=== PATIENT | female | born 1980 | race Caucasian/White ===

== ENCOUNTER 2019-12-31 10:47 | Outpatient (CLI) | payer MEDICARE, OTHER, SELFPAY ==
--- NOTE | 2019-12-31 11:00 | MR_ITS ---
WS: [id number] MRI THORACIC SPINE without contrast HISTORY: back pain COMPARISON: 07/22/2018 TECHNIQUE: Multiplanar sequences are performed in sagittal and axial planes. Prior anterior cervical fusion from C4 to C7. There is mild focal kyphosis centered at T10-11. Signal within the cord remains normal. Significant disc desiccation and mild narrowing at T10-11 and T11-12 . T1-2: Normal. T2-3: Normal. T3-4: Normal. T4-5: Normal. T5-6: Normal. T6-7: Facet and ligamentum flavum arthropathy. There is mild narrowing of the foramen. No significan t stenosis. T7-8: Facet joint arthropathy and ligamentum flavum hypertrophy. Mild bilateral foraminal stenosis. T8-9: Facet joint arthropathy and ligamentum flavum arthropathy with moderate narrowing of the loli en. T9-10: Bilateral facet joint arthropathy. Moderate bilateral foraminal stenosis. T10-11: Mild annular disc bulging and facet arthropathy. Mild to moderate bilateral foraminal stenos is. T11-12: Moderate RIGHT paracentral disc protrusion with deformity of the RIGHT lateral thecal sac. N o significant encroachment or contact on the cord. Mild bilateral foraminal stenosis. Paravertebral soft tissues are normal. Patient has a known LEFT adrenal adenoma which is not seen on this exam. MR/MR thoracic spin wo con* [id number] IMPRESSION: 1. Multilevel facet joint arthropathy and degenerative disc disease in the [facility] spine. Mild progression since 2018. 2. Facet joint arthropathy most significant from T6-7 through T10-11. 3. Moderate foraminal narrowing at T8-9 through T10-11. 4. Moderate RIGHT paracentral disc protrusion at T11-[address] contact. Similar to the prior study.
--- NOTE | 2019-12-31 13:00 | MR_ITS ---
WS: [id number] MRI LUMBAR SPINE NONCONTRAST HISTORY: back pain, radiating pain down RIGHT leg. COMPARISON: 06/13/2018 TECHNIQUE: Sagittal and axial multisequence imaging is submitted. Disc protrusion at T11-12 was described on the thoracic spine MRI obtained on the same day. Very slight increase in lumbar lordosis. No fracture or marrow edema. Disc desiccation at L5-S1 is mild without loss of height. Conus terminates normally at L1-2 disc level. L1-L2: Normal. L2-L3: Mild annular disc bulging and facet arthropathy. No stenosis. L3-L4: Mild annular disc bulging with moderate facet and ligamentum flavum arthropathy. No focal disc protrusion. Very mild central and subarticular recess stenosis. L4-L5: Mild annular disc bulging with a very shallow central protrusion. Ligamentum flavum hypertroph y and facet arthropathy. L5-S1: Mild annular disc bulging with a superimposed central to RIGHT paracentral and proximal forami nal protrusion. Disc protrusion is slightly increased since the prior study and now abuts the RIGHT L 5 nerve root. Effacement and displacement of the thecal sac. There is mild encroachment on the RIGHT L5 nerve root. Similar to the prior study. Paraspinal soft tissues are normal. MR/MR lumbar spine wo con* [id number] IMPRESSION: 1. Slight enlargement of the previously described L5-S1 right-sided disc protr usion. Protrusion now abuts the L5 nerve root. 2. Mild central and subarticular recess stenosis at L3-4, similar to the prior study.
== END 2019-12-31 10:48 | disposition home or self-care (01) ==
LOC: RADSHAW 10:54
PROVIDERS: Family Provider Family Medicine; PCP Family Medicine; Visit Provider Nurse Practitioner Family
DX: M54.16 Radiculopathy, lumbar region (principal); G89.29 Other chronic pain; M54.6 Pain in thoracic spine; M48.061 Spinal stenosis, lumbar region without neurogenic claudication; M51.24 Other intervertebral disc displacement, thoracic region
CPT/HCPCS: 72146; 72148

== ENCOUNTER → 2020-02-19 10:37 | Outpatient (BNVA) | payer MEDICARE, BC, SELFPAY | PROVIDERS: Family Provider Family Medicine; PCP Family Medicine; Visit Provider Nurse Practitioner Family | DX: E11.9 Type 2 diabetes mellitus without complications (principal); M51.17 Intervertebral disc disorders with radiculopathy, lumbosacral region | CPT/HCPCS: 80053; 83036 ==

== ENCOUNTER 2020-03-10 12:49 | Outpatient (CLI) | payer MEDICARE, BC, SELFPAY ==
--- NOTE | 2020-03-10 13:00 | XR_ITS ---
WS: [id number] LATERAL LUMBAR SPINE: 3 view. Lateral radiographs are performed in upright neutral, flexion and extension to the patient's toleranc e. HISTORY: Low back pain COMPARISON: 06/13/2018 Slight increase in lumbar lordosis. Alignment is normal. With flexion and extension there is no insta bility. No fractures. XR/XR lumbar spine f/e only [id number] IMPRESSION: No lumbar spine instability.
== END 2020-03-10 12:50 | disposition home or self-care (01) ==
LOC: RADWPI 12:53
PROVIDERS: Family Provider Family Medicine; PCP Family Medicine; Visit Provider Licensed Practical Nurse
DX: M54.5 Low back pain (principal)
CPT/HCPCS: 72120

== ENCOUNTER 2020-03-16 06:00 | Outpatient (RCR) | payer BC, MEDICARE, SELFPAY | END 2020-04-04 23:59 | disposition home or self-care (01) | LOC: GPT 06:00 | PROVIDERS: PCP Family Medicine; Referring Provider Licensed Practical Nurse; Visit Provider Licensed Practical Nurse | DX: M51.17 Intervertebral disc disorders with radiculopathy, lumbosacral region (principal) | CPT/HCPCS: 97032; 97110; 97112; 97161; 97530 ==

== ENCOUNTER 2020-04-05 06:00 | Outpatient (RCR) | payer MEDICARE, BC, SELFPAY | END 2020-05-04 23:59 | disposition home or self-care (01) | LOC: GPT 06:00 | PROVIDERS: PCP Family Medicine; Visit Provider Licensed Practical Nurse | DX: M51.17 Intervertebral disc disorders with radiculopathy, lumbosacral region (principal) | CPT/HCPCS: 97110; 97112; 97140; 97530 ==

== ENCOUNTER 2020-05-05 06:00 | Outpatient (RCR) | payer BC, MEDICARE, SELFPAY | END 2020-06-04 23:59 | disposition home or self-care (01) | LOC: GPT 06:00 | PROVIDERS: PCP Family Medicine; Visit Provider Licensed Practical Nurse | DX: M51.17 Intervertebral disc disorders with radiculopathy, lumbosacral region (principal) | CPT/HCPCS: 97032; 97110; 97112; 97140; 97530 ==

== ENCOUNTER → 2020-06-02 14:00 | Outpatient (BNVA) | payer MEDICARE, BC, SELFPAY | PROVIDERS: PCP Family Medicine; Visit Provider Nurse Practitioner Family | DX: E55.9 Vitamin D deficiency, unspecified (principal); E11.9 Type 2 diabetes mellitus without complications | CPT/HCPCS: 82306; 83036 ==

== ENCOUNTER → 2020-08-23 14:26 | Outpatient (BNVA) | payer MEDICARE, SELFPAY | PROVIDERS: PCP Nurse Practitioner Family; Visit Provider Nurse Practitioner Family | DX: Z11.59 Encounter for screening for other viral diseases (principal) | CPT/HCPCS: 87635 ==

== ENCOUNTER 2020-11-17 06:00 | Outpatient (RCR) | payer MEDICARE, SELFPAY | END 2020-12-05 23:59 | disposition home or self-care (01) | LOC: GPT 06:00 | PROVIDERS: PCP Nurse Practitioner Family; Referring Provider Neurological Surgery; Visit Provider Neurological Surgery | DX: G95.9 Disease of spinal cord, unspecified (principal); M53.3 Sacrococcygeal disorders, not elsewhere classified; G89.29 Other chronic pain | CPT/HCPCS: 97110; 97161 ==

== ENCOUNTER 2020-12-06 06:00 | Outpatient (RCR) | payer MEDICARE, SELFPAY | END 2021-01-02 23:59 | disposition home or self-care (01) | LOC: GPT 06:00 | PROVIDERS: PCP Nurse Practitioner Family; Referring Provider Neurological Surgery; Visit Provider Neurological Surgery | DX: G95.9 Disease of spinal cord, unspecified (principal); M53.3 Sacrococcygeal disorders, not elsewhere classified; G89.29 Other chronic pain | CPT/HCPCS: 97110; 97140; 97164; 97530 ==

== ENCOUNTER 2021-01-03 06:00 | Outpatient (RCR) | payer MEDICARE, SELFPAY | END 2021-02-02 23:59 | disposition home or self-care (01) | LOC: GPT 06:00 | PROVIDERS: PCP Nurse Practitioner Family; Referring Provider Neurological Surgery; Visit Provider Neurological Surgery | DX: G95.9 Disease of spinal cord, unspecified (principal); M53.3 Sacrococcygeal disorders, not elsewhere classified; G89.29 Other chronic pain | CPT/HCPCS: 97110; 97140; 97530 ==

== ENCOUNTER 2021-02-03 06:00 | Outpatient (RCR) | payer MEDICARE, SELFPAY | END 2021-03-04 23:59 | disposition home or self-care (01) | LOC: GPT 06:00 | PROVIDERS: PCP Nurse Practitioner Family; Referring Provider Neurological Surgery; Visit Provider Neurological Surgery | DX: M47.12 Other spondylosis with myelopathy, cervical region (principal); M53.3 Sacrococcygeal disorders, not elsewhere classified; G89.29 Other chronic pain | CPT/HCPCS: 97110; 97140; 97164; 97530 ==

== ENCOUNTER → 2022-09-08 11:43 | Outpatient (BNVA) | payer MEDICARE, SELFPAY | PROVIDERS: PCP Nurse Practitioner Family; Visit Provider Nurse Practitioner Family | DX: Z12.4 Encounter for screening for malignant neoplasm of cervix (principal); E11.65 Type 2 diabetes mellitus with hyperglycemia; E55.9 Vitamin D deficiency, unspecified | CPT/HCPCS: 80053; 80061; 82306; 83036; 84443; 85025; 88175 ==

== ENCOUNTER 2022-10-04 15:11 | Outpatient (CLI) | payer MEDICARE, SELFPAY ==
--- NOTE | 2022-10-04 15:21 | MM_ITS ---
WS: [id number] BILATERAL 3D TOMOSYNTHESIS DIGITAL SCREENING MAMMOGRAPHY WITH CAD CLINICAL INFORMATION: Z12.31 - Encounter for screening mammogram for malignant ... HISTORY: Screening mammogram. No current complaints. COMPARISON: None. TECHNIQUE: Bilateral CC and MLO views. FINDINGS: History of breast reduction Scattered fibroglandular densities bilaterally. No suspicious focal mass, asymmetry, calcifications, or architectural distortion. No evidence of malignancy. Incidental punctate and lucent centered calci fications. MM/[place] [id number] IMPRESSION: BI-RADS: 2-Benign FOLLOW UP: 1 Year Follow-up Recommend return to annual screening mammography.
== END 2022-10-04 15:12 | disposition home or self-care (01) ==
LOC: RAD 15:11
PROVIDERS: PCP Nurse Practitioner Family; Visit Provider Nurse Practitioner Family
DX: Z12.31 Encounter for screening mammogram for malignant neoplasm of breast (principal)
CPT/HCPCS: 77063; 77067

== ENCOUNTER → 2023-04-26 14:18 | Outpatient (BNVA) | payer MEDICARE, SELFPAY | PROVIDERS: PCP Nurse Practitioner Family; Visit Provider Nurse Practitioner Family | DX: B35.1 Tinea unguium (principal) | CPT/HCPCS: 80053 ==

== ENCOUNTER 2023-04-29 17:29 | Emergency (ER) | payer MEDICARE, SELFPAY ==
[2023-04-29 17:31] VITALS: BP 141/86; PULSE 91; RESP 18; TEMP 36.7; O2SAT 97; BMI 35.3
--- NOTE | 2023-04-29 18:17 | XRR_ITS ---
PROCEDURE INFORMATION: Exam: XR Right Ankle Exam date and time: 04/29/2023 6:33 PM Age: 42 years old Clinical indication: Injury or trauma; Fall TECHNIQUE: Imaging protocol: Radiologic exam of the right ankle. Views: 3 or more views. COMPARISON: No relevant prior studies available. FINDINGS: Bones/joints: There is an overriding oblique fracture distal right fibula metadiaphysis and comminuted fracture medial malleolus. No fracture of the posterior malleolus. No dislocation. Small osteophyte anterior tibia and bony remodeling distal tibia and fibula compatible with previous ankle injury. There is calcaneal enthesopathy. No definite osteochondral lesion of the talus. Soft tissues: There is abundant soft tissue edema. XR/XR ankle RT min 3V* [id number] IMPRESSION: There is an overriding oblique fracture distal right fibula metadiaphysis and comminuted nondisplaced fracture medial malleolus.
[2023-04-29 19:41] VITALS: BP 155/112; PULSE 91; RESP 16; O2SAT 96
--- NOTE | 2023-04-29 19:42 | ED_ITS ---
HPI - Fall General: Chief Complaint: Fall Stated Complaint: Right ankle pain, fall Time Seen by Provider: 04/29/23 18:20 Source: patient and family Mode of arrival: wheelchair Limitations: no limitations History of Present Illness: Patient presents to the emergency department today for evaluation treatment of right ankle injury. Patient states that around 3-4 o'clock this morning, she got up from bed to try and use the restroom. She states she believes she accidentally caught her foot on part of her bed when trying to get up which resulted in her falling. Patient states that when she realized she was on the floor she tried to get up but was unable to put any weight on the extremity. She states she has been unable to bear weight all day and comes in for evaluation. The area is extremely swollen and bruised. 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 Kristian Stone open release of the median nerve at the wrist on the left History of delivery History of knee surgery History of partial adrenalectomy Pseudarthrosis following spinal fusion 06/21/2017 Dr. Kristian Stone: C4-C5 and revision C5-C6, C6-C7 ACDFF. Dr. Patricia Mckeon C5-C6, C6-C7 ACDFF Family History Grandmother Cancer Social History Smoking and tobacco status: current every day smoker cigarettes Packs smoked per day: 0.5 Alcohol intake: never Substance/Drug Use: never Household members: spouse and children Marital status: Current occupational status: disabled Physical Exam Const: COMMON NORMALS: no acute distress, patient oriented x3 and alert HENMT: COMMON NORMALS: normocephalic, atraumatic and hearing grossly normal bilaterally HEAD & SCALP: normocephalic and atraumatic Eye: COMMON NORMALS: Equal, round and reactive pupils present, EOMs intact bilaterally and conjunctivae normal CONJUNCTIVA: Yes conjunctivae normal PUPIL: Yes Equal, round and reactive pupils present Neck/C-Spine: COMMON NORMALS: full ROM and no JVD Lymph: LYMPHATIC: no lymphadenopathy noted Resp: COMMON NORMALS: normal respiratory effort, No retractions and No use of accessory muscles Cardio: COMMON NORMALS: no JVD and regular rate RATE: regular rate Extremity: NARRATIVE EXTREMITY EXAM: Patient is nonweightbearing to the right lower extremity and patient has pain with any range of motion at the ankle. Patient does have mobility of the toes. Significant swelling and bruising to the joint appreciated. Bruising across the dorsal aspect of the midfoot. Neurovascular intact distally. Neuro: COMMON NORMALS: patient oriented x3 SENSORIUM/ORIENTATION: Yes alert Psych: COMMON NORMALS: mental status grossly normal, Normal thought process present, cooperative and normal affect THOUGHT PROCESS: Normal thought process present Skin: COMMON NORMALS: no rashes or lesions noted and turgor normal GENERAL SKIN EXAM: no rashes or lesions noted and turgor normal Course Vital Signs: Vital signs: Vital Signs Temperature 98.1 F 04/29/23 17:31 Pulse Rate 91 04/29/23 19:41 Respiratory Rate 14 04/29/23 19:49 Blood Pressure 155/112 04/29/23 19:41 Pulse Oximetry 96 04/29/23 19:41 Oxygen Delivery Me thod Room Air 04/29/23 19:41 MDM - Fall Medical Decision Making Patient presents today for right ankle injury. X-ray indicates a bimalleolar fracture with a oblique fracture to the distal right fibula and comminuted nondisplaced fracture to the medial malleolus. It does appear that the [place] is generally intact but may slightly be shifted more medially. Patient does have bruising across the midfoot however, on the oblique view of the x-ray, the metatarsals are visible without signs of fracture. I did discuss the case with Dr. Porter. He wants to see the patient in his clinic tomorrow afternoon and indicates he will have his front office call. Patient is to be put into a long posterior sugar-tong splint and to remain nonweightbearing using crutches. Patient states she has crutches at home and will use those. She was given a very short course of pain medication by Dr. Gastelum as she can most likely get a refill or extension by orthopedics tomorrow. She is to keep her foot up and elevated through the night. X-ray findings, orthopedic consult, and recommendation for follow-up were all discussed with the patient who verbalizes her understanding and agreement to treatment plan. Differential Diagnosis Unlikely fracture of wrist (Ankle fracture, ankle sprain, foot fracture, foot sprain, tibial spiral fracture) Lab Data Radiology Impressions Ankle X-Ray 04/29/23 18:17 IMPRESSION: There is an overriding oblique fracture distal right fibula metadiaphysis and comminuted nondisplaced fracture medial malleolus. Discharge Plan Discharge Patient Disposition: Home Clinical Impression: Bimalleolar ankle fracture Condition: Stable Prescriptions: No Action latanoprost [Xalatan] 0.005 % drops 1 drop ophthalmic (eye) BID oxycodone-acetaminophen [Percocet] 10-325 mg tablet 1 tab PO BID PRN methadone 10 mg tablet 15 mg PO DAILY fluconazole 200 mg tablet 200 mg PO Q72H Qty: 3 0RF Rx Instructions: repeat x 3 doses terbinafine HCl 250 mg tablet 250 mg PO DAILY 84 Days Qty: 84 0RF metformin 500 mg tablet 500 mg PO BID Qty: 90 1RF cholecalciferol (vitamin D3) 125 mcg (5,000 unit) capsule 125 mcg PO DAILY Qty: 90 0RF lisinopril 10 mg tablet 10 mg PO DAILY Qty: 30 0RF baclofen 20 mg tablet See Rx Instructions .ROUTE .COMPLEX Qty: 120 3RF Dose Instruction: TAKE ONE TABLET BY MOUTH 4 TIMES DAILY NEEDED FOR MUSCLE SPASMS Rx Instructions: TAKE ONE TABLET BY MOUTH 4 TIMES DAILY NEEDED FOR MUSCLE SPASMS venlafaxine 75 mg tablet See Rx Instructions .ROUTE .COMPLEX Qty: 180 1RF Dose Instruction: TAKE ONE TABLET BY MOUTH TWICE A DAY Rx Instructions: TAKE ONE TABLET BY MOUTH TWICE A DAY Discharge Orders: Discharge ED (Routine); Ordered 04/29/23 Ordered By: Radha Mejia Referrals: Tennille Sipmson NP [Primary Care Provider] - Discharge Diet: Usual diet Discharge Activity: Limit activity as instructed Patient Instructions: Ankle Fracture (ED) Activity Restrictions/Additional Instructions: X-ray today confirms what we call a bimalleolar fracture. This is a fracture to both bones of the lower extremity that help create the ankle joint. I did speak with Dr. Porter with orthopedics regarding this finding and he would like to follow-up with you tomorrow. I have sent a referral to our case management worker letting her know of your need for an appointment tomorrow but, he also indicated he would let his office staff know and you should be getting contacted in the morning. The emergency room physician here danika has provided you a prescription for some pain medication to have on hand but, would likely assume you will also be receiving medication from the orthopedic office. Do not bear any weight on the extremity. Is much as possible keep it up and elevated. Keep your splint clean and dry. Coding Level of Care Code ED Fabricator Artificial Breast for Charisse Poole
[2023-04-29 19:49] VITALS: RESP 14
[2023-04-29] MEDS: fentaNYL 50 mcg/mL INJ 2mL 25 MCG IVP (19:49)
[2023-04-29 20:26] VITALS: RESP 14; O2SAT 97
[2023-04-29] MEDS: oxyCODONE-APAP 5-325 mg Tablet 1 TAB PO (20:26)
[2023-04-29 20:28] VITALS: PULSE 102; RESP 14; O2SAT 97
--- NOTE | 2023-04-30 09:44 | PC.SOCIAL ---
Addendum entered by Vida Perkins 05/17/23 14:21: Patient had a follow up appointment scheduled with ortho - patient did attend appointment. Original Note: Ortho F/u Referral sent to ortho at this time. Clinic to contact patient with appt date/time.
== END 2023-04-29 20:31 | disposition home or self-care (01) ==
PROVIDERS: Emergency Provider Physician Assistant; PCP Nurse Practitioner Family
DX: S82.844A Nondisplaced bimalleolar fracture of right lower leg, initial encounter for closed fracture (principal); Z79.891 Long term (current) use of opiate analgesic; Z79.84 Long term (current) use of oral hypoglycemic drugs; I10 Essential (primary) hypertension; E11.9 Type 2 diabetes mellitus without complications; F17.210 Nicotine dependence, cigarettes, uncomplicated; W19.XXXA Unspecified fall, initial encounter
CPT/HCPCS: 29515; 73610; 96374; 99284; J3010

== ENCOUNTER → 2023-04-30 15:49 | Outpatient (BNVA) | payer MEDICARE, SELFPAY | PROVIDERS: PCP Nurse Practitioner Family; Visit Provider Podiatrist Foot & Ankle Surgery | DX: S82.851A Displaced trimalleolar fracture of right lower leg, initial encounter for closed fracture (principal); W19.XXXA Unspecified fall, initial encounter; Y92.009 Unspecified place in unspecified non-institutional (private) residence as the place of occurrence of the external cause | CPT/HCPCS: 99204 ==

== ENCOUNTER 2023-05-04 08:26 | Day surgery (SDC) | payer MEDICARE, SELFPAY ==
[2023-05-03 13:16] VITALS: BMI 35.3
[2023-05-04] VITALS (12 sets, daily range): BP systolic 112–152; BP diastolic 69–98; PULSE 70–107; RESP 14–20; TEMP 36.1–36.6; O2SAT 94–97
--- NOTE | 2023-05-04 | XR_ITS ---
WS: [id number] Exam: XR ankle RT 2V [id number] Date/Time of Exam: 05/04/2023 12:00 AM Reason For Exam: ORIF ankle Comparison 04/29/2023. There is plate and screw fixation involving a fracture of the lower fibula in satisfactory alignment for healing. 2 screws also stabilize a fracture of the medial malleolus. The ankle mortise appears to be intact. XR/XR ankle RT 2V [id number] IMPRESSION: 1. Internal fixation of bimalleolar fracture as noted above.
--- NOTE | 2023-05-04 06:29 | W.PM.OPSUD ---
Surgery/Procedure H&P Update DATE OF PROCEDURE: May 04, 2023 DATE H&P PERFORMED: 04/30/23 CHANGES TO PREVIOUS DOCUMENTATION: None PLANNED PROCEDURE: Operation Date: 05/04/23 10:05 Proposed Procedures p :Open reduction internal fixation right trimalleolar fracture 35844,S82.851A(Right) - Eren Porter DPM
[2023-05-04] MEDS: sodium chloride 0.9% 1,000 ML 30 ML IV (09:01)
[2023-05-04 09:05] LABS: Glucose Point of Care 302 mg/dL (70-110)
[2023-05-04] MEDS: insulin regular-human 100 units/1 mL 10 UNIT IVP (09:35)
--- NOTE | 2023-05-04 09:39 | ANES.PREANE2 ---
Pre-Anesthetic Assessment Height/Weight: Height 1.78 m Weight 111.584 kg Temp Pulse Resp BP Pulse Ox O2 Del Method 97 F L 98 18 152/98 96 Room Air 05/04/23 08:48 05/04/23 08:48 05/04/23 08:48 05/04/23 08:48 05/04/23 08:48 05/04/23 08:50 Preop Diagnosis: Right trimalleolar fracture Operation Date: 05/04/23 10:05 Proposed Procedures p :Open reduction internal fixation right trimalleolar fracture 77801,S82.851A(Right) - Eren Porter DPM Familial anesthetic complications: none Was Beta Lupillo taken within 24 hours: N/A Was Clonidine taken within 24 hours: N/A Last intake: Intake Last Liquid Date 05/04/23 Last Liquid Time 06:00 Last Solid Date 05/03/23 Last Solid Time 21:30 Social Tobacco and No alcohol Exam alert, oriented x 3, clear to auscultation bilaterally and regular rate & rhythm Airway Mallampati: Class III Dentition: full Comments: Comments: neck fusion CV/HEM Hypertension Metabolic Diabetes Mellitus Anesthetic Plan ASA status: 3 Anesthesia: General and Regional (specify below) Medications/Allergies Home Medications Medication Instructions Recorded Confirmed Last Taken Type latanoprost 0.005 % eye drops 1 drop ophthalmic (eye) BID 12/24/19 05/03/23 05/03/23 History (Xalatan) methadone 10 mg tablet 15 mg PO DAILY 03/30/23 05/03/23 05/04/23 History fluconazole 200 mg tablet 200 mg PO Q72H #3 tabs 04/26/23 05/03/23 Unknown Rx metformin 500 mg tablet 500 mg PO BID #90 tabs 04/26/23 05/03/23 05/03/23 Rx terbinafine HCl 250 mg tablet 250 mg PO DAILY 12 weeks #84 tabs 04/26/23 05/03/23 05/03/23 Rx baclofen 20 mg tablet 20 mg PO QID PRN spasms 05/03/23 05/03/23 Unknown History venlafaxine 75 mg tablet 75 mg PO BID 05/03/23 05/03/23 05/03/23 History oxycodone-acetaminophen 10 mg-325 1 tab PO Q6H PRN pain 7 days #28 05/04/23 Unknown Rx mg tablet (Percocet) tabs Allergies Allergy/AdvReac Type Severity Reaction Status Date / Time gabapentin Allergy Mild BLE Verified 05/04/23 08:57 swelling pregabalin [From Lyrica] Allergy Mild BLE Verified 05/04/23 08:57 swelling Current Medications Generic Name Dose Route Start Last Admin Trade Name Angelq PRN Reason Stop Dose Admin Sodium Chloride 1,000 mls @ 30 mls/hr 05/04/23 08:45 05/04/23 09:01 Sodium Chloride 0.9% IV 05/05/23 08:44 30 mls/hr .Q24H KIKA Administration PFSH Anesthesia Medical History Depression Enrolled in chronic care management Fibromyalgia 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 Kristian Stone open release of the median nerve at the wrist on the left History of delivery History of knee surgery History of partial adrenalectomy Pseudarthrosis following spinal fusion 06/21/2017 Dr. Kristian Stone: C4-C5 and revision C5-C6, C6-C7 ACDFF. Dr. Patricia Mckeon C5-C6, C6-C7 ACDFF Family History Grandmother Cancer Social History Smoking and tobacco status: current every day smoker cigarettes Packs smoked per day: 0.5 Alcohol intake: never Substance/Drug Use: never Household members: spouse and children Marital status: Current occupational status: disabled Female Reproductive History Date of last menstrual period: 11/04/22 Data Anesthesia Cardiac Studies: No Data to Display
[2023-05-04] MEDS: ceFAZolin 2,000 MG in sodium chloride 0.9% (plus) 50 ML 100 MG IV (09:42)
[2023-05-04 09:44] LABS: OR HCG Qualitative Urine Negative (Negative)
--- NOTE | 2023-05-04 10:02 | ANES.PROC ---
Anesthesia Procedures Procedure/Date: 05/04/23 Nerve Block ^: Nerve Block 1: Main Anesthesia: general anesthesia Time Out Performed: Yes Consent: requested by attending/covering physician, from patient, from other, risks and benefits reviewed and patient agrees to proceed Nerve block location: popliteal (R) Anesthesia monitors applied: pulse oximetry, EKG, BP cuff and oxygen Nerve block position: supine Anesthetic Used: ropivicaine 0.5% (30 ml) and with decadron (4 mg) Ultrasound used to: recognize landmarks Nerve Stimulator Used?: No Interscalene/Femoral BLK: 4 stimuplex 21 g needle used for position and inplane approach, visualize local anesthetic spread and no vascular puncture identified Injection: neg aspiration of heme Patient Tolerated Procedure: well and no complications Complications: none
[2023-05-04] MEDS: ipratropium 0.5 mg/2.5 mL Neb INHALATION (11:05)
--- NOTE | 2023-05-04 11:28 | PM.OP ---
Operative Report Date of procedure: May 04, 2023 Pre-op diagnosis: Preop Diagnosis Right trimalleolar fracture Post-op diagnosis: Same Post-op findings: No syndesmotic disruption Procedure done: Reduction internal fixation right trimalleolar fracture. CPT code 52658 Implants: Wainwright anatomic fibular plate Wainwright 3.5 millimeter screws Wainwright 4.0 millimeter screws 2-0 Vicryl, 3-0 Vicryl, skin jamee 10 cc of Marcaine Surgeon: Eren Porter D.P.M. Employment Specialist: See intraoperative documentation Estimated blood loss: 5 41 IV fluids: 0 Urine output: 0 Complications: None Findings: No syndesmotic disruption. Brief History: New for 42-year-old female presents with right trimalleolar equivalent ankle fracture, she fell at her home getting out of bed to use the restroom in the early hours of 04/29/2023. X-rays taken in the emergency department 04/29/2023 significant for right trimalleolar equivalent.? Deven Grover displaced fracture laterally and proximally, comminuted fracture of the medial malleolus.? Discussed the nature of instability at patient's ankle as a result of her injuries and her best options being surgical fixation.? Recommend open reduction internal fixation right trimalleolar.? I reviewed at length with the patient, the risks, potential complications, benefits, alternatives, expectations, and typical outcomes associated with the surgery. The risks and potential complications were explained in detail, including but not limited to infection, wound dehiscence or soft tissue complications, bleeding and hematoma, chronic edema, neuritis or nerve damage producing numbness or chronic pain, CRPS, failure to relieve pain or worsening pain, thick / painful / unsightly scar, limited motion / stiffness, malposition, delayed union, malunion, or nonunion, fracture, reaction to implants, anesthetic complications, venous thromboembolism, and deformity recurrence.? I discussed the notion of no regrets with the patient as it pertains to complications and outcomes. The patient seemed to understand the nature of the proposed care and required convalescence. They asked appropriate questions, answered to their satisfaction. They are aware no guarantees can be made as to a satisfactory outcome and they understand there may be other possible unforeseen complications or outcomes not listed here that will be treated accordingly if they arise. There were no written or implied guarantees given to the patient. They gave informed consent to proceed. Procedure: The patient was placed under general anesthesia in the supine position. Timeout was performed. The right lower extremity was prepped and draped in a sterile manner. A pneumatic tourniquet was placed on the right high calf and inflated to 250 mmHg following Esmarch examination. An anterolateral approach was made to the right ankle joint. The lateral malleolus was exposed and a fracture was identified. The fracture fragments were reduced anatomically and confirmed under fluoroscopic guidance. Next, an anatomic fibular plate was selected and contoured to match the lateral malleolus. The plate was then positioned over the lateral malleolus, ensuring proper alignment of the fracture fragments. The plate was fixed to the lateral malleolus using 3.5 millimeter screws 5 screws proximal and 5 screws distal to the fracture.. The position of the plate and screws was confirmed radiographically. Screws did not violate the ankle mortise this was confirmed in all 3 standard views. Attention was then directed to the medial malleolus. A separate incision was made over the medial malleolus, and the fracture was exposed. The fracture fragments were reduced anatomically and confirmed under fluoroscopy. To stabilize the medial malleolus, 4.0 millimeter parallel screws were inserted maintaining proper alignment and stability of the fracture fragments. The position of the screws was confirmed radiographically. AP, oblique and lateral views confirmed that the 4 mm screws at the medial malleolus fracture did not violate the ankle joint. Cotton hook test was performed, syndesmosis was intact this was performed under live fluoroscopy. After confirming adequate reduction and fixation of both the lateral and medial malleoli, the wound was thoroughly irrigated with saline solution. The incisions were closed in layers, 2-0 Vicryl periosteum, 3-0 Vicryl subcutaneous tissue and jamee at skin. Sterile dressings consisting of Adaptic, sterile 4 x 4's, Kerlix and Brda wrap followed by application of a cam boot. The tourniquet was deflated, and the patient's right lower extremity was evaluated for adequate perfusion and neurological function. The patient tolerated the procedure well, and there were no intraoperative complications.
[2023-05-04] MEDS: oxyCODONE-APAP 10-325 mg Tablet 1 TAB PO (12:10)
--- NOTE | 2023-05-04 14:20 | ANE.PACU2 ---
Inpatient post-anesthesia follow up: Airway intact: Yes Vital signs: Temperature 98 F Pulse Rate 70 Respiratory Rate 16 Blood Pressure 115/75 Pulse Oximetry 95 Oxygen Delivery Me thod Room Air Oxygen Flow Rate 3.0 Fraction of Inspir ed Oxygen Hydration adequate: Yes Nausea and vomiting: No Pain level: 1 Mental status: Baseline
== END 2023-05-04 12:40 | disposition home or self-care (01) ==
PROVIDERS: Anesthesiology; PCP Nurse Practitioner Family; Visit Provider Podiatrist Foot & Ankle Surgery
PROC: (CPT 27822; principal; 2023-05-04 09:55)
DX: W18.30XA Fall on same level, unspecified, initial encounter (principal); S82.851A Displaced trimalleolar fracture of right lower leg, initial encounter for closed fracture; I10 Essential (primary) hypertension; E11.9 Type 2 diabetes mellitus without complications; Z79.891 Long term (current) use of opiate analgesic; Z79.84 Long term (current) use of oral hypoglycemic drugs; F17.210 Nicotine dependence, cigarettes, uncomplicated
CPT/HCPCS: 27822; 36416; 73600; 76000; 81025; 82962; 84703; A7003; C1713; J0690; J1100; J1815; J1885; J2250; J2405; J2704; J2795; J3010; J3490; J7030; J7644

== ENCOUNTER → 2023-05-17 14:05 | Outpatient (BNVA) | payer MEDICARE, SELFPAY | PROVIDERS: PCP Nurse Practitioner Family; Visit Provider Podiatrist Foot & Ankle Surgery | DX: S82.851A Displaced trimalleolar fracture of right lower leg, initial encounter for closed fracture (principal); X58.XXXA Exposure to other specified factors, initial encounter; Z98.890 Other specified postprocedural states; Z87.81 Personal history of (healed) traumatic fracture | CPT/HCPCS: 73610; 73620; 99213 ==

== ENCOUNTER → 2023-05-31 13:15 | Outpatient (BNVA) | payer MEDICARE, SELFPAY | PROVIDERS: PCP Nurse Practitioner Family; Visit Provider Podiatrist Foot & Ankle Surgery | DX: Z98.890 Other specified postprocedural states (principal); S82.851A Displaced trimalleolar fracture of right lower leg, initial encounter for closed fracture; X58.XXXA Exposure to other specified factors, initial encounter | CPT/HCPCS: 73610; 99024 ==

== ENCOUNTER → 2023-06-14 14:18 | Outpatient (BNVA) | payer MEDICARE, SELFPAY | PROVIDERS: PCP Nurse Practitioner Family; Visit Provider Podiatrist Foot & Ankle Surgery | DX: S82.851A Displaced trimalleolar fracture of right lower leg, initial encounter for closed fracture (principal); Z98.890 Other specified postprocedural states; Z87.81 Personal history of (healed) traumatic fracture; X58.XXXA Exposure to other specified factors, initial encounter | CPT/HCPCS: 73610; 99024 ==

== ENCOUNTER → 2023-06-28 13:05 | Outpatient (BNVA) | payer MEDICARE, SELFPAY | PROVIDERS: PCP Nurse Practitioner Family; Visit Provider Podiatrist Foot & Ankle Surgery | DX: Z98.890 Other specified postprocedural states; S82.851D Displaced trimalleolar fracture of right lower leg, subsequent encounter for closed fracture with routine healing; X58.XXXD Exposure to other specified factors, subsequent encounter | CPT/HCPCS: 73610; 99024 ==

== ENCOUNTER 2023-07-03 06:00 | Outpatient (RCR) | payer MEDICARE, SELFPAY | END 2023-07-05 23:59 | disposition home or self-care (01) | LOC: GPT 06:00 | PROVIDERS: Visit Provider Podiatrist Foot & Ankle Surgery | DX: Z47.89 Encounter for other orthopedic aftercare (principal) | CPT/HCPCS: 97161 ==

== ENCOUNTER 2023-07-06 06:00 | Outpatient (RCR) | payer MEDICARE, SELFPAY | END 2023-08-04 23:59 | disposition home or self-care (01) | LOC: GPT 06:00 | PROVIDERS: PCP Nurse Practitioner Family; Visit Provider Podiatrist Foot & Ankle Surgery | DX: Z47.89 Encounter for other orthopedic aftercare (principal) | CPT/HCPCS: 97110; 97112; 97140; 97597; 99213 ==

== ENCOUNTER → 2023-07-06 11:57 | Outpatient (BNVA) | payer MEDICARE, SELFPAY | PROVIDERS: PCP Nurse Practitioner Family; Visit Provider Nurse Practitioner Family | DX: E11.65 Type 2 diabetes mellitus with hyperglycemia (principal); E11.621 Type 2 diabetes mellitus with foot ulcer; L97.529 Non-pressure chronic ulcer of other part of left foot with unspecified severity | CPT/HCPCS: 83036; 87070; 87077; 87186 ==

== ENCOUNTER → 2023-07-13 08:54 | Outpatient (BNVA) | payer MEDICARE, SELFPAY | PROVIDERS: PCP Nurse Practitioner Family; Referring Provider Dermatology; Visit Provider Student in an Organized Health Care Education/Training Program | DX: E11.52 Type 2 diabetes mellitus with diabetic peripheral angiopathy with gangrene; L97.522 Non-pressure chronic ulcer of other part of left foot with fat layer exposed; E11.621 Type 2 diabetes mellitus with foot ulcer; L97.422 Non-pressure chronic ulcer of left heel and midfoot with fat layer exposed; I96 Gangrene, not elsewhere classified | CPT/HCPCS: 20600; 73110; 97597; 99203; J3301; J3490 ==

== ENCOUNTER → 2023-08-02 14:31 | Outpatient (BNVA) | payer MEDICARE, SELFPAY | PROVIDERS: PCP Nurse Practitioner Family; Visit Provider Podiatrist Foot & Ankle Surgery | DX: Z98.890 Other specified postprocedural states; S82.851D Displaced trimalleolar fracture of right lower leg, subsequent encounter for closed fracture with routine healing; X58.XXXD Exposure to other specified factors, subsequent encounter | CPT/HCPCS: 73610; 99024 ==

== ENCOUNTER 2023-08-05 06:00 | Outpatient (RCR) | payer MEDICARE, SELFPAY | END 2023-09-04 23:59 | disposition home or self-care (01) | LOC: GPT 06:00 | PROVIDERS: PCP Nurse Practitioner Family; Visit Provider Podiatrist Foot & Ankle Surgery | DX: S82.851D Displaced trimalleolar fracture of right lower leg, subsequent encounter for closed fracture with routine healing (principal); X58.XXXD Exposure to other specified factors, subsequent encounter; Z47.89 Encounter for other orthopedic aftercare | CPT/HCPCS: 97110; 97112; 97140 ==

== ENCOUNTER 2023-09-05 06:00 | Outpatient (RCR) | payer MEDICARE, SELFPAY | END 2023-10-04 23:59 | disposition home or self-care (01) | LOC: GPT 06:00 | PROVIDERS: PCP Nurse Practitioner Family; Visit Provider Podiatrist Foot & Ankle Surgery | DX: Z98.890 Other specified postprocedural states (principal) | CPT/HCPCS: 97110; 97112; 97140; 97164 ==

== ENCOUNTER → 2023-09-13 13:04 | Outpatient (BNVA) | payer MEDICARE, SELFPAY | PROVIDERS: PCP Nurse Practitioner Family; Visit Provider Podiatrist Foot & Ankle Surgery | DX: E11.65 Type 2 diabetes mellitus with hyperglycemia (principal); M21.41 Flat foot [pes planus] (acquired), right foot; M21.42 Flat foot [pes planus] (acquired), left foot; Z79.84 Long term (current) use of oral hypoglycemic drugs | CPT/HCPCS: 99213 ==

== ENCOUNTER 2023-10-05 06:00 | Outpatient (RCR) | payer MEDICARE, SELFPAY | END 2023-11-04 23:59 | disposition home or self-care (01) | LOC: GPT 06:00 | PROVIDERS: PCP Nurse Practitioner Family; Visit Provider Podiatrist Foot & Ankle Surgery | DX: Z98.890 Other specified postprocedural states (principal) | CPT/HCPCS: 97110; 97112; 97140; 97164 ==

== ENCOUNTER → 2023-10-11 17:22 | Outpatient (BNVA) | payer MEDICARE, SELFPAY | PROVIDERS: PCP Nurse Practitioner Family; Visit Provider Nurse Practitioner Family | DX: I10 Essential (primary) hypertension (principal); E11.65 Type 2 diabetes mellitus with hyperglycemia; E55.9 Vitamin D deficiency, unspecified | CPT/HCPCS: 80053; 80061; 82306; 83036; 84443 ==

== ENCOUNTER 2023-11-05 06:00 | Outpatient (RCR) | payer MEDICARE, SELFPAY | END 2023-12-05 23:59 | disposition home or self-care (01) | LOC: GPT 06:00 | PROVIDERS: PCP Nurse Practitioner Family; Visit Provider Podiatrist Foot & Ankle Surgery | DX: Z98.890 Other specified postprocedural states (principal) | CPT/HCPCS: 97110; 97112; 97140; 97164 ==

== ENCOUNTER 2023-12-03 17:21 | Outpatient (CLI) | payer MEDICARE, SELFPAY ==
--- NOTE | 2023-12-03 17:31 | XRR_ITS ---
PROCEDURE INFORMATION: Exam: XR Cervical Spine Exam date and time: 12/03/2023 5:34 PM Age: 43 years old Clinical indication: Neck pain; Prior surgery; Surgery date: 1-6 months; Surgery type: Laminectomy; Additional info: Postlaminectomy TECHNIQUE: Imaging protocol: Radiologic exam of the cervical spine. Views: 2 or 3 views. COMPARISON: CT cervical spin wo con* [id number] 08/27/2018 10:34 AM FINDINGS: Bones/joints: Multilevel discogenic degenerative changes. Status post ACDF of C4-7. Status post multilevel posterior laminectomy. Straightening of the normal cervical lordosis. No spondylolisthesis. Stability is maintained on flexion and extension views. Soft tissues: Superficial soft tissues are within normal limits. XR/XR cervical spine fl/ex [id number] IMPRESSION: Postprocedural changes as above. No spondylolisthesis. No evidence of instability on flexion or extension views.
== END 2023-12-03 17:22 | disposition home or self-care (01) ==
LOC: RAD 17:25
PROVIDERS: PCP Nurse Practitioner Family; Visit Provider Nurse Practitioner
DX: M96.1 Postlaminectomy syndrome, not elsewhere classified (principal); Z98.890 Other specified postprocedural states
CPT/HCPCS: 72040

== ENCOUNTER → 2023-12-25 07:53 | Outpatient (BNVA) | payer MEDICARE, SELFPAY | PROVIDERS: PCP Nurse Practitioner Family; Visit Provider Podiatrist Foot & Ankle Surgery | DX: L60.0 Ingrowing nail (principal); E11.65 Type 2 diabetes mellitus with hyperglycemia; M72.2 Plantar fascial fibromatosis; Z79.84 Long term (current) use of oral hypoglycemic drugs | CPT/HCPCS: 11730; 87070; 87075; 87077; 87186; 87205; 99213 ==

== ENCOUNTER 2024-01-05 20:41 | Emergency (ER) | payer MEDICARE, SELFPAY ==
[2024-01-05 21:00] VITALS: BP 158/93; PULSE 98; RESP 18; TEMP 36.8; O2SAT 94; BMI 35.2
--- NOTE | 2024-01-05 22:05 | ED_ITS ---
Documented by User: [email or web address] Siddiqui 01/07/24 17:15 HPI - Extremity Problem 2 General: Chief complaint: Extremity Problem,Nontraumatic Stated complaint: infection in ln toe, sent by doc Time Seen by Provider: 01/05/24 21:20 Source: patient Mode of arrival: ambulatory Limitations: no limitations History of Present Illness: Patient is a 43-year-old female with past medical history of diabetes who presents the emergency department complaining of left first toe pain and redness onset 2 weeks but worsening today. Patient states she had an ingrown toenail removed [address] Porter, and had the wound cultured. Per the patient, the culture grew out a very resistant strain of staphylococcal species, that is reportedly nonreactive to many antibiotics. She has been on doxycycline, but states that her pain and swelling has not improved over the past couple weeks. She has been sending pictures to Dr. Porter periodically, and today was told to come to the emergency department for potential admission for IV antibiotics and consult with infectious disease. Patient denies any fevers, chest pain, breathing difficulties, nausea vomiting, or any other symptoms. Associated symptoms: Deny chest pain, fever(s) or rash Review of Systems 2 General: Reports: 10 or more systems reviewed and unremarkable except in HPI and below Const: Denies: fever(s), chills or fatigue Eyes: Denies: change in vision ENMT: Denies: throat pain, ear or mastoid pain or nasal discharge Card: Denies: chest pain, palpitations, swelling of feet/ankles or lightheadedness Resp: Denies: dyspnea, productive cough or wheezing GI: Denies: abdominal pain, nausea, vomiting, diarrhea or constipation : Denies: flank pain, difficulty voiding, dysuria or urinary frequency Musc: Reports: extremity pain (Left first toe) and extremity swelling (Left first toe); Denies: neck pain or back pain Skin/Breast: Denies: rash Neuro: Denies: headache(s), numbness in extremities or weakness in extremities PFS ED 2 PFSH: Medical History History of ankle fracture 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 Kristian Stone: C4-C5 and revision C5-C6, C6-C7 ACDFF. Dr. Patricia Mckeon C5-C6, C6-C7 ACDFF History of knee surgery Carpal tunnel syndrome of left wrist 04/26/2017 Dr. Kristian Stone open release of the median nerve at the wrist on the left History of delivery History of partial adrenalectomy Family History Grandmother Cancer Social History Smoking and tobacco/nicotine status: current every day tobacco/nicotine user cigarettes Packs smoked per day: 0.5 Alcohol intake: never Substance/Drug Use: never Household members: spouse and children Marital status: Current occupational status: disabled Physical Exam 2 Const: COMMON NORMALS: no acute distress, patient oriented x3 and no limitations GENERAL APPEARANCE: cooperative, comfortable and well developed ORIENTATION/CONSCIOUSNESS: Yes awake, Yes oriented to person, Yes oriented to place and Yes oriented to time HENMT: COMMON NORMALS: normocephalic, atraumatic and hearing grossly normal bilaterally HEAD & SCALP: normocephalic and atraumatic Neck/C-Spine: COMMON NORMALS: full ROM, supple and no JVD Resp: COMMON NORMALS: normal respiratory effort, No retractions, No use of accessory muscles and clear to auscultation bilaterally AUSCULTATION: clear to auscultation bilaterally Cardio: COMMON NORMALS: no JVD, regular rate, regular rhythm, No clicks present (Cardio), No murmurs present (Cardio) and No rub (Cardio) RATE: r egular rate RHYTHM: regular rhythm Extremity: COMMON NORMALS: full ROM OTHER: The left great toe is erythematous and moderately edematous. The toenail is surgically absent, and is not actively bleeding or draining. The redness and swelling extend approximately to the first MTP. It is exquisitely tender to the touch. All other digits normal and distal pulses intact. No red streaking noted. Neuro: COMMON NORMALS: patient oriented x3, moves all extremities, no focal motor deficits and no sensory deficits noted SENSORIUM/ORIENTATION: Yes oriented to person, Yes oriented to place and Yes oriented to time Psych: COMMON NORMALS: mental status grossly normal and Normal thought process present THOUGHT PROCESS: Normal thought process present Skin: COMMON NORMALS: no rashes or lesions noted GENERAL SKIN EXAM: no rashes or lesions noted Course 2 Vital Signs: Vital signs: Vital Signs Temperature 98.3 F 01/05/24 21:00 Pulse Rate 98 01/05/24 21:00 Respiratory Rate 18 01/05/24 21:00 Blood Pressure 158/93 01/05/24 21:00 Pulse Oximetry 94 01/05/24 21:00 Oxygen Delivery Me thod Room Air 01/05/24 21:00 MDM - Extremity (Nontraumatic) Medical Decision Making This patient was seen and evaluated in the emergency department today for evaluation of her left great toe infection. Patient has been seeing Dr. Porter as 2 weeks ago he removed an ingrown toenail and cultured the wound, resulting in a rare strain or staphylococcal species. She was started on doxycycline, however the organism is resistant to a numerous amount of antibiotics. Initially, Dr. Porter had recommended she go to the ER for admission to the hospital for IV antibiotics. Upon consulting the hospitalist, they reported that the patient would be consult with infectious disease as her infection would warrant specific antibiotic treatment from specialist. Dr. Porter called again and informed of this, and he recommended that patient be transferred to a facility that could have infectious disease consult her. Labs ordered and image of the left toe was also obtained. Overall her laboratory results were unremarkable, and showed no acute signs of systemic infection. She had a minimally elevated CRP, normal ESR, and normal procalcitonin. I discussed plan for transfer with the patient, however it is mutually decided that she would benefit more from outpatient follow-up with Dr. Porter and wound care, with close evaluation of her toe and symptoms for any worsening infection. This includes any fevers, extension of redness and swelling past the first MTP, nausea vomiting, or other concerning symptoms. Infectious disease is on-call on Sunday, and patient will follow-up as discussed. Patient agrees with this plan. All other concerns are addressed at this time. Patient discharged home. Lab Data 01/05/24 23:07 01/05/24 23:07 Radiology Impressions Toe X-Ray 01/05/24 22:56 IMPRESSION: Lucencies and possible fragmentation of the tuft of the 1st distal phalanx raising concern for osteomyelitis. This would be better assessed with MRI if indicated. Laboratory Results WBC 7.54 10^3/uL (3.29-11.43) 01/05/24 23:07 RBC 4.34 10^6/uL (3.85-5.65) 01/05/24 23:07 Hgb 13.80 g/dL (11.27-16.99) 01/05/24 23:07 Hct 41.1 % (36-47) 01/05/24 23:07 MCV 94.7 fl (85-98) 01/05/24 23:07 MCH 31.8 pg (27-33) 01/05/24 23:07 MCHC 33.6 g/dL (30-55) 01/05/24 23:07 RDW 11.9 % (12.1-15.1) L 01/05/24 23:07 Plt Count 181 10^3/cmm (157-399) 01/05/24 23:07 MPV 10.3 fL (7.4-10.4) 01/05/24 23:07 Neut % (Auto) 51.3 % 01/05/24 23:07 Lymph % (Auto) 40.7 % 01/05/24 23:07 [place] % (Auto) 5.4 % 01/05/24 23:07 Eos % (Auto) 1.9 % 01/05/24 23:07 Baso % (Auto) 0.4 % 01/05/24 23:07 Neut # (Auto) 3.87 10^3/uL (1.8-7.7) 01/05/24 23:07 Lymph # (Auto) 3.1 10^3/uL (0.8-4.8) 01/05/24 23:07 [place] # (Auto) 0.4 10^3/uL (0.2-0.9) 01/05/24 23:07 Eos # (Auto) 0.1 10^3/uL (0.0-0.8) 01/05/24 23:07 Baso # (Auto) 0.0 10^3/uL (0.0-0.1) 01/05/24 23:07 Nucleated RBC % (auto) 0 % 01/05/24 23:07 Nucleated RBCs # 0.0 /100WBC 01/05/24 23:07 ESR 5 mm/hr (0-15) 01/05/24 23:07 Sodium 136 mmol/L (136-145) 01/05/24 23:07 Potassium 4.0 mmol/L (3.5-5.1) 01/05/24 23:07 Chloride 100 mmol/L (98-107) 01/05/24 23:07 Carbon Dioxide 26 mmol/L (22-29) 01/05/24 23:07 Anion Gap 14.0 (5-19) 01/05/24 23:07 BUN 10 mg/dL (6-20) 01/05/24 23:07 Creatinine 0.7 mg/dL (0.5-0.9) 01/05/24 23:07 GFR Calculation 90.5 mL/min (90-130) 01/05/24 23:07 Glucose 260 mg/dL (65-115) H 01/05/24 23:07 Calculated Osmolality 290 mOsm/kg (285-295) 01/05/24 23:07 Calcium 9.3 mg/dL (8.5-10.5) 01/05/24 23:07 Total Bilirubin 0.2 mg/dL (0.15-1.2) 01/05/24 23:07 AST 14 U/L (0-32) 01/05/24 23:07 ALT 12 U/L (0-33) 01/05/24 23:07 Alkaline Phosphatase 104 U/L (35-105) 01/05/24 23:07 C-Reactive Protein 6.2 mg/L (0.0-4.9) H 01/05/24 23:07 Total Protein 6.5 g/dL (6.6-8.7) L 01/05/24 23:07 Albumin 3.8 g/dL (3.5-5.2) 01/05/24 23:07 Globulin 2.7 g/dL (1.3-4.6) 01/05/24 23:07 Procalcitonin 0.06 ng/mL (0-0.5) 01/05/24 23:07 Urine Color Yellow (Yellow) 01/06/24 00:18 Urine Appearance Clear (CLEAR) 01/06/24 00:18 Urine pH 5 (5-7) 01/06/24 00:18 Ur Specific [place] 1.020 (1.005-1.030) 01/06/24 00:18 Urine Protein Neg (Negative) 01/06/24 00:18 Urine Glucose (UA) Norm (Normal) 01/06/24 00:18 Urine Ketones Negative (Negative) 01/06/24 00:18 Urine Blood Neg (Negative) 01/06/24 00:18 Urine Nitrate Negative (Negative) 01/06/24 00:18 Urine Bilirubin Neg (Negative) 01/06/24 00:18 Urine Urobilinogen Norm mg/dL (Negative) 01/06/24 00:18 Ur Leukocyte Esterase Negative (Negative) 01/06/24 00:18 XR interpretation done by ED provider, pending radiology final review Discharge Plan Discharge Patient Disposition: Home Clinical Impression: Infection of toe Condition: Stable Prescriptions: No Action latanoprost [Xalatan] 0.005 % drops 1 drop ophthalmic (eye) BID methadone 10 mg tablet 15 mg PO DAILY terbinafine HCl 250 mg tablet 250 mg PO DAILY 84 Days Qty: 84 0RF (DME) ASO to the right See Rx Instructions .Route .MEDSUPPLY Qty: 1 0RF Rx Instructions: As directed diclofenac sodium 1 % gel See Rx Instructions .ROUTE .COMPLEX Qty: 300 1RF Dose Instruction: APPLY 4 GRAMS TO AFFECTED AREA 4 TIMES DAILY Rx Instructions: APPLY 4 GRAMS TO AFFECTED AREA 4 TIMES DAILY metformin 1,000 mg tablet 1,000 mg PO BID Qty: 180 3RF doxycycline hyclate 100 mg capsule 100 mg PO BID 14 Days Qty: 28 0RF mupirocin 2 % ointment 1 applic topical TID Qty: 15 0RF Rx Instructions: apply to wound TID and as needed with dressing changes, cover with band-aid tirzepatide 5 mg/0.5 mL pen injector 5 mg SUBCUT .weekly Qty: 2 2RF lisinopril 40 mg tablet 40 mg PO DAILY Qty: 90 0RF dalbavancin 500 mg solution 1,500 mg IV ONCE 1 Days oxycodone-acetaminophen [Percocet] 7.5-325 mg tablet 1 tab PO Q6H PRN (Reason: pain) 7 Days Qty: 28 0RF venlafaxine 75 mg tablet 75 mg PO BID Qty: 180 0RF (DME) Diabetic shoes See Rx Instructions .ROUTE .MEDSUPPLY Qty: 1 0RF Rx Instructions: With one pair custom molded accommodative inserts made by the shoe damaris baclofen 20 mg tablet See Rx Instructions .ROUTE .COMPLEX Qty: 120 3RF Dose Instruction: TAKE ONE TABLET BY MOUTH 4 TIMES DAILY NEEDED FOR MUSCLE SPASMS Rx Instructions: TAKE ONE TABLET BY MOUTH 4 TIMES DAILY NEEDED FOR MUSCLE SPASMS cholecalciferol (vitamin D3) 125 mcg (5,000 unit) capsule 125 mcg PO DAILY Qty: 90 3RF Discharge Orders: Discharge ED (Routine); Ordered 01/06/24 Ordered By: Chris Hernandez Referrals: Tennille Simpson, [facility] [Primary Care Provider] - Discharge Diet: Usual diet Discharge Activity: Increase activity as tolerated Activity Restrictions/Additional Instructions: Please follow-up with Dr. Porter next week to discuss your ER visit and potential referral with infectious disease. Please return if you develop any fevers, nausea or vomiting, significant extension of your redness swelling or pain, or any other concerning symptoms you may have. 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 Kristian Stone: C4-C5 and revision C5-C6, C6-C7 ACDFF[address] Dr. Patricia Mckeon C5-C6, C6-C7 ACDFF History of knee surgery Carpal tunnel syndrome of left wrist 04/26/2017 Dr. Kristian Stone open release of the median nerve at the wrist on the left History of delivery History of partial adrenalectomy Family History Grandmother Cancer Social History Smoking and tobacco/nicotine status: current every day tobacco/nicotine user cigarettes Packs smoked per day: 0.5 Alcohol intake: never Substance/Drug Use: never Household members: spouse and children Marital status: Current occupational status: disabled Course 2 Vital Signs: Vital signs: Vital Signs Temperature 98.3 F 01/05/24 21:00 Pulse Rate 98 01/05/24 21:00 Respiratory Rate 18 01/05/24 21:00 Blood Pressure 158/93 01/05/24 21:00 Pulse Oximetry 94 01/05/24 21:00 Oxygen Delivery Me thod Room Air 01/05/24 21:00 MDM - Extremity (Nontraumatic) Medical Decision Making This patient was seen and evaluated in the emergency department today for evaluation of her left great toe infection. Patient has been seeing Dr. Porter as 2 weeks ago he removed an ingrown toenail and cultured the wound, resulting in a rare strain or staphylococcal species. She was started on doxycycline, however the organism is resistant to a numerous amount of antibiotics. Initially, Dr. Porter had recommended she go to the ER for admission to the hospital for IV antibiotics. Upon consulting the hospitalist, they reported that the patient would be consult with infectious disease as her infection would warrant specific antibiotic treatment from specialist. Dr. Porter called again and informed of this, and he recommended that patient be transferred to a facility that could have infectious disease consult her. Labs ordered and image of the left toe was also obtained. Overall her laboratory results were unremarkable, and showed no acute signs of systemic infection. She had a minimally elevated CRP, normal ESR, and normal procalcitonin. I discussed plan for transfer with the patient, however it is mutually decided that she would benefit more from outpatient follow-up with Dr. Porter and wound care, with close evaluation of her toe and symptoms for any worsening infection. This includes any fevers, extension of redness and swelling past the first MTP, nausea vomiting, or other concerning symptoms. Infectious disease is on-call on Sunday, and patient will follow-up as discussed. Patient agrees with this plan. All other concerns are addressed at this time. Patient discharged home. Chart reviewed and patient discussed with midlevel. Agree with assessment and plan. Lab Data 01/05/24 23:07 01/05/24 23:07 Radiology Impressions Toe X-Ray 01/05/24 22:56 IMPRESSION: Lucencies and possible fragmentation of the tuft of the 1st distal phalanx raising concern for osteomyelitis. This would be better assessed with MRI if indicated. Laboratory Results WBC 7.54 10^3/uL (3.29-11.43) 01/05/24 23:07 RBC 4.34 10^6/uL (3.85-5.65) 01/05/24 23:07 Hgb 13.80 g/dL (11.27-16.99) 01/05/24 23:07 Hct 41.1 % (36-47) 01/05/24 23:07 MCV 94.7 fl (85-98) 01/05/24 23:07 MCH 31.8 pg (27-33) 01/05/24 23:07 MCHC 33.6 g/dL (30-55) 01/05/24 23:07 RDW 11.9 % (12.1-15.1) L 01/05/24 23:07 Plt Count 181 10^3/cmm (157-399) 01/05/24 23:07 MPV 10.3 fL (7.4-10.4) 01/05/24 23:07 Neut % (Auto) 51.3 % 01/05/24 23:07 Lymph % (Auto) 40.7 % 01/05/24 23:07 [place] % (Auto) 5.4 % 01/05/24 23:07 Eos % (Auto) 1.9 % 01/05/24 23:07 Baso % (Auto) 0.4 % 01/05/24 23:07 Neut # (Auto) 3.87 10^3/uL (1.8-7.7) 01/05/24 23:07 Lymph # (Auto) 3.1 10^3/uL (0.8-4.8) 01/05/24 23:07 [place] # (Auto) 0.4 10^3/uL (0.2-0.9) 01/05/24 23:07 Eos # (Auto) 0.1 10^3/uL (0.0-0.8) 01/05/24 23:07 Baso # (Auto) 0.0 10^3/uL (0.0-0.1) 01/05/24 23:07 Nucleated RBC % (auto) 0 % 01/05/24 23:07 Nucleated RBCs # 0.0 /100WBC 01/05/24 23:07 ESR 5 mm/hr (0-15) 01/05/24 23:07 Sodium 136 mmol/L (136-145) 01/05/24 23:07 Potassium 4.0 mmol/L (3.5-5.1) 01/05/24 23:07 Chloride 100 mmol/L (98-107) 01/05/24 23:07 Carbon Dioxide 26 mmol/L (22-29) 01/05/24 23:07 Anion Gap 14.0 (5-19) 01/05/24 23:07 BUN 10 mg/dL (6-20) 01/05/24 23:07 Creatinine 0.7 mg/dL (0.5-0.9) 01/05/24 23:07 GFR Calculation 90.5 mL/min (90-130) 01/05/24 23:07 Glucose 260 mg/dL (65-115) H 01/05/24 23:07 Calculated Osmolality 290 mOsm/kg (285-295) 01/05/24 23:07 Calcium 9.3 mg/dL (8.5-10.5) 01/05/24 23:07 Total Bilirubin 0.2 mg/dL (0.15-1.2) 01/05/24 23:07 AST 14 U/L (0-32) 01/05/24 23:07 ALT 12 U/L (0-33) 01/05/24 23:07 Alkaline Phosphatase 104 U/L (35-105) 01/05/24 23:07 C-Reactive Protein 6.2 mg/L (0.0-4.9) H 01/05/24 23:07 Total Protein 6.5 g/dL (6.6-8.7) L 01/05/24 23:07 Albumin 3.8 g/dL (3.5-5.2) 01/05/24 23:07 Globulin 2.7 g/dL (1.3-4.6) 01/05/24 23:07 Procalcitonin 0.06 ng/mL (0-0.5) 01/05/24 23:07 Urine Color Yellow (Yellow) 01/06/24 00:18 Urine Appearance Clear (CLEAR) 01/06/24 00:18 Urine pH 5 (5-7) 01/06/24 00:18 Ur Specific [place] 1.020 (1.005-1.030) 01/06/24 00:18 Urine Protein Neg (Negative) 01/06/24 00:18 Urine Glucose (UA) Norm (Normal) 01/06/24 00:18 Urine Ketones Negative (Negative) 01/06/24 00:18 Urine Blood Neg (Negative) 01/06/24 00:18 Urine Nitrate Negative (Negative) 01/06/24 00:18 Urine Bilirubin Neg (Negative) 01/06/24 00:18 Urine Urobilinogen Norm mg/dL (Negative) 01/06/24 00:18 Ur Leukocyte Esterase Negative (Negative) 01/06/24 00:18 Discharge Plan Discharge Patient Disposition: Home Clinical Impression: Infection of toe Condition: Stable Prescriptions: No Action latanoprost [Xalatan] 0.005 % drops 1 drop ophthalmic (eye) BID methadone 10 mg tablet 15 mg PO DAILY terbinafine HCl 250 mg tablet 250 mg PO DAILY 84 Days Qty: 84 0RF (DME) ASO to the right See Rx Instructions .Route .MEDSUPPLY Qty: 1 0RF Rx Instructions: As directed diclofenac sodium 1 % gel See Rx Instructions .ROUTE .COMPLEX Qty: 300 1RF Dose Instruction: APPLY 4 GRAMS TO AFFECTED AREA 4 TIMES DAILY Rx Instructions: APPLY 4 GRAMS TO AFFECTED AREA 4 TIMES DAILY metformin 1,000 mg tablet 1,000 mg PO BID Qty: 180 3RF doxycycline hyclate 100 mg capsule 100 mg PO BID 14 Days Qty: 28 0RF mupirocin 2 % ointment 1 applic topical TID Qty: 15 0RF Rx Instructions: apply to wound TID and as needed with dressing changes, cover with band-aid tirzepatide 5 mg/0.5 mL pen injector 5 mg SUBCUT .weekly Qty: 2 2RF lisinopril 40 mg tablet 40 mg PO DAILY Qty: 90 0RF dalbavancin 500 mg solution 1,500 mg IV ONCE 1 Days oxycodone-acetaminophen [Percocet] 7.5-325 mg tablet 1 tab PO Q6H PRN (Reason: pain) 7 Days Qty: 28 0RF venlafaxine 75 mg tablet 75 mg PO BID Qty: 180 0RF (DME) Diabetic shoes See Rx Instructions .ROUTE .MEDSUPPLY Qty: 1 0RF Rx Instructions: With one pair custom molded accommodative inserts made by the shoe damaris baclofen 20 mg tablet See Rx Instructions .ROUTE .COMPLEX Qty: 120 3RF Dose Instruction: TAKE ONE TABLET BY MOUTH 4 TIMES DAILY NEEDED FOR MUSCLE SPASMS Rx Instructions: TAKE ONE TABLET BY MOUTH 4 TIMES DAILY NEEDED FOR MUSCLE SPASMS cholecalciferol (vitamin D3) 125 mcg (5,000 unit) capsule 125 mcg PO DAILY Qty: 90 3RF Discharge Orders: Discharge ED (Routine); Ordered 01/06/24 Ordered By: Chris Hernandez Referrals: Tennille Simpson NP [Primary Care Provider] - Discharge Diet: Usual diet Discharge Activity: Increase activity as tolerated Activity Restrictions/Additional Instructions: Please follow-up with Dr. Porter next week to discuss your ER visit and potential referral with infectious disease. Please return if you develop any fevers, nausea or vomiting, significant extension of your redness swelling or pain, or any other concerning symptoms you may have. Coding Level of Care Code ED Nutritional Services Host for [facility]ole
--- NOTE | 2024-01-05 22:56 | XRR_ITS ---
PROCEDURE INFORMATION: Exam: XR Left Toe(s) Exam date and time: 01/06/2024 12:05 AM Age: 43 years old Clinical indication: Other: Infection great toe; Additional info: Great toe pain redness TECHNIQUE: Imaging protocol: Radiologic exam of the left toes. Views: Minimum 2 views. COMPARISON: No relevant prior studies available. FINDINGS: Bones/joints: Moderate hallux valgus. Moderate degenerative change of the 1st metatarsophalangeal joint. Lucencies and possible fragmentation of the tuft of the 1st distal phalanx raising concern for osteomyelitis. Soft tissues: Soft tissue swelling. XR/XR toe LT min 2V [id number] IMPRESSION: Lucencies and possible fragmentation of the tuft of the 1st distal phalanx raising concern for osteomyelitis. This would be better assessed with MRI if indicated.
[2024-01-05 23:16] LABS: Basophils % 0.4 %; Eosinophils # 0.1 10^3/uL (0.0-0.8); Eosinophils % 1.9 %; Hematocrit 41.1 % (36-47); Lymphocytes # 3.1 10^3/uL (0.8-4.8); Lymphocytes % 40.7 %; Mean Corpuscular HGB Conc 33.6 g/dL (30-55); Mean Corpuscular Hemoglobin 31.8 pg (27-33); Mean Corpuscular Volume 94.7 fl (85-98); Mean Platelet Volume 10.3 fL (7.4-10.4); Monocytes # 0.4 10^3/uL (0.2-0.9); Monocytes % 5.4 %; Neutrophils # 3.87 10^3/uL (1.8-7.7); Neutrophils % 51.3 %; Nucleated Red Blood Cells % 0 %; Platelet Count 181 10^3/cmm (157-399); Red Blood Count 4.34 10^6/uL (3.85-5.65); Red Cell Distribution Width 11.9 % (12.1-15.1); White Blood Count 7.54 10^3/uL (3.29-11.43)
[2024-01-05 23:21] LABS: Erythrocyte Sedimentation Rate 5 mm/hr (0-15)
[2024-01-05 23:33] LABS: Alanine Aminotransferase 12 U/L (0-33); Albumin Level 3.8 g/dL (3.5-5.2); Alkaline Phosphatase 104 U/L (35-105); Aspartate Amino Transferase 14 U/L (0-32); Blood Urea Nitrogen 10 mg/dL (6-20); C Reactive Protein 6.2 mg/L (0.0-4.9); Calcium 9.3 mg/dL (8.5-10.5); Carbon Dioxide 26 mmol/L (22-29); Chloride 100 mmol/L (98-107); Creatinine Clr Calc Pharmacy 137.0699; Globulin 2.7 g/dL (1.3-4.6); Glomerular Filtration Rate 90.5 mL/min (90-130); Glucose 260 mg/dL (65-115); Osmolality Calculated 290 mOsm/kg (285-295); Sodium 136 mmol/L (136-145); Total Bilirubin 0.2 mg/dL (0.15-1.2); Total Protein 6.5 g/dL (6.6-8.7)
[2024-01-05 23:40] LABS: Procalcitonin 0.06 ng/mL (0-0.5)
[2024-01-06 01:21] LABS: Add Urine Microscopic? NO; Charge for UA Resulting for Rev
[2024-01-06 01:22] LABS: Bilirubin Urine Neg (Negative); Blood Urine Neg (Negative); Glucose Urine UA Norm (Normal); Ketones Urine Negative (Negative); Leukocyte Esterase Urine Negative (Negative); Nitrate Urine Negative (Negative); Protein Urine Neg (Negative); Urine Appearance Clear (CLEAR); Urine Color Yellow (Yellow); Urobilinogen Urine Norm (Negative); pH Urine 5 (5-7)
--- NOTE | 2024-01-08 14:53 | PC.SOCIAL ---
ID Referral Referral to ID at this time. Clinic to contact patient with appt date/time.
== END 2024-01-06 01:25 | disposition home or self-care (01) ==
PROVIDERS: Emergency Medicine; Emergency Provider Physician Assistant; PCP Nurse Practitioner Family
DX: L08.9 Local infection of the skin and subcutaneous tissue, unspecified (principal); Z79.84 Long term (current) use of oral hypoglycemic drugs; F17.210 Nicotine dependence, cigarettes, uncomplicated; E11.9 Type 2 diabetes mellitus without complications; I10 Essential (primary) hypertension
CPT/HCPCS: 36415; 73660; 80053; 81003; 84145; 85025; 85651; 86140; 87040; 99284

== ENCOUNTER → 2024-01-08 08:05 | Outpatient (BNVA) | payer MEDICARE, SELFPAY | PROVIDERS: PCP Nurse Practitioner Family; Visit Provider Podiatrist Foot & Ankle Surgery | DX: L60.0 Ingrowing nail (principal); L03.116 Cellulitis of left lower limb; E11.65 Type 2 diabetes mellitus with hyperglycemia; Z79.84 Long term (current) use of oral hypoglycemic drugs | CPT/HCPCS: 99204; 99213 ==

== ENCOUNTER 2024-01-11 09:02 | Oncology outpatient (recurring) (ONCR) | payer MEDICARE, SELFPAY ==
[2024-01-11 09:57] VITALS: BP 147/82; PULSE 93; RESP 17; TEMP 36.8; O2SAT 99
[2024-01-11] MEDS: dalbavancin 1,500 MG in dextrose 5% 250 ML 500 MG IV (10:11)
== END 2024-02-03 23:59 | disposition home or self-care (01) ==
PROVIDERS: PCP Nurse Practitioner Family; Visit Provider Student in an Organized Health Care Education/Training Program
DX: L03.032 Cellulitis of left toe (principal)
CPT/HCPCS: 96365; J0875; J7060

== ENCOUNTER 2024-01-14 10:12 | Outpatient (CLI) | payer MEDICARE, SELFPAY ==
--- NOTE | 2024-01-14 10:15 | MR_ITS ---
WS: [id number] EXAMINATION: MR foot LT wo/w con [id number] ORDER DATE: 01/14/2024 10:16 AM COMPARISON: None. HISTORY: to rule out osteomyelitis of distal phlanx left foot CONTRAST: None. TECHNIQUE: Sagittal T1, sagittal STIR, coronal PD, coronal T2, axial T1, axial T2, and axial PD imagi ng with fat saturation technique. Post gadolinium imaging includes axial T1, coronal T1, and sagittal T1 with fat saturation technique. FINDINGS: Hallux valgus. Degenerative arthritis at the first MTP and DIP joints. Subchondral cystic c hanges involving the head of the first metatarsal at the MTP joint. Soft tissue edema with skin thick ening overlying the distal first phalanx. Replacement of the normal bone marrow signal involving the first distal phalanx with associated surrounding soft tissue edema and enhancement. Lytic and erosive changes involving the distal phalanx as seen on the recent radiograph. Suggestion o f T2 hyperintense soft tissue lesion involving the distal phalanx and overlying soft tissues. Some of this may represent phlegmon or abscess. Post gadolinium images in this area are degraded due to dist al location IMPRESSION: Images are limited due to distal location at the distal tuft first toe 1. Destructive process involving the distal phalanx first toe with associated T2 hyperintense intrao sseous and subcutaneous soft tissue lesion or phlegmon/abscess. Differential considerations include o steomyelitis with abscess/phlegmon or possibly destructive primary intraosseous lesion such as fibrom a, giant cell tumor, osteoblastoma, fibrosarcoma, or possibly granuloma 2. Hallux valgus. 3. Degenerative of the first MTP with extensive subchondral cystic change involving the first metata rsal head.
== END 2024-01-14 10:13 | disposition home or self-care (01) ==
LOC: RAD 10:13
PROVIDERS: PCP Nurse Practitioner Family; Visit Provider Podiatrist Foot & Ankle Surgery
DX: L03.116 Cellulitis of left lower limb (principal); M20.12 Hallux valgus (acquired), left foot; M19.072 Primary osteoarthritis, left ankle and foot; R93.6 Abnormal findings on diagnostic imaging of limbs
CPT/HCPCS: 73720; A9577

== ENCOUNTER → 2024-01-15 07:04 | Outpatient (BNVA) | payer MEDICARE, SELFPAY | PROVIDERS: PCP Nurse Practitioner Family; Visit Provider Podiatrist Foot & Ankle Surgery | DX: E11.65 Type 2 diabetes mellitus with hyperglycemia (principal); L03.116 Cellulitis of left lower limb; M90.572 Osteonecrosis in diseases classified elsewhere, left ankle and foot; Z79.84 Long term (current) use of oral hypoglycemic drugs | CPT/HCPCS: 99214 ==

== ENCOUNTER 2024-01-18 05:56 | Day surgery (SDC) | payer MEDICARE, SELFPAY ==
[2024-01-18] VITALS (7 sets, daily range): BP systolic 98–159; BP diastolic 62–101; PULSE 81–93; RESP 17–18; TEMP 36.2–36.6; O2SAT 93–98; BMI 34.4
[2024-01-18] MEDS: sodium chloride 0.9% 1,000 ML 30 ML IV (06:26)
--- NOTE | 2024-01-18 06:35 | P.HPUD_ITS ---
Surgery/Procedure H&P Update DATE OF PROCEDURE: January 18, 2024 DATE H&P PERFORMED: 01/15/24 H&P UPDATE INFORMATION: I have reviewed H&P completed within last 30 days, I have examined patient prior to procedure, No changes to prior documentation and H&P is in [facility] EMR on date indicated CHANGES TO PREVIOUS DOCUMENTATION: None PREOP DIAGNOSIS: Osteonecrosis left great toe PRIMARY INDICATION FOR PROCEDURE: Osteonecrosis left great toe PLANNED PROCEDURE: Operation Date: 01/18/24 07:30 Proposed Procedures p Incision And Drainage Incision of Bone Cortex/ Incision of bone cortex left great toe(Left) - Eren Porter DPM
[2024-01-18 06:38] LABS: Glucose Point of Care 212 mg/dL (70-110)
--- NOTE | 2024-01-18 06:40 | ANES.PREANE2 ---
Pre-Anesthetic Assessment Height/Weight: Height 1.78 m Weight 108.862 kg Temp Pulse Resp BP Pulse Ox O2 Del Method 97.1 F L 93 18 159/101 98 Room Air 01/18/24 06:10 01/18/24 06:10 01/18/24 06:10 01/18/24 06:10 01/18/24 06:10 01/18/24 06:10 Preop Diagnosis: Osteonecrosis left great toe Operation Date: 01/18/24 07:30 Proposed Procedures p Incision And Drainage Incision of Bone Cortex/ Incision of bone cortex left great toe(Left) - Eren Porter DPM Familial anesthetic complications: None Was Beta Lupillo taken within 24 hours: N/A Was Clonidine taken within 24 hours: N/A Last intake: Intake Last Liquid Date 01/17/24 Last Liquid Time 21:30 Last Solid Date 01/17/24 Last Solid Time 21:30 Social No alcohol and No tobacco Exam alert, oriented x 3 and regular rate & rhythm slight b/l wheeze bilaterally Airway Mallampati: Class III Dentition: full Metabolic Diabetes Mellitus and Morbid Obesity Anesthetic Plan ASA status: 3 Anesthesia: MAC Risk of > 500 ml blood loss (7ml/kg in children): No Medications/Allergies Home Medications Medication Instructions Recorded Confirmed Last Taken Type methadone 10 mg tablet 5 mg PO TID 03/30/23 01/18/24 01/18/24 History ASO to the right #1 ea 06/28/23 01/15/24 Unknown Rx diclofenac sodium 1 % topical gel See Rx Instructions .Route 08/03/23 01/17/24 Unknown Rx .COMPLEX #300 grams venlafaxine 75 mg tablet 75 mg PO BID #180 tabs 08/20/23 01/18/24 01/18/24 Rx metformin 1,000 mg tablet 1,000 mg PO BID #180 tabs 08/31/23 01/17/24 01/17/24 Rx Diabetic shoes #1 ea 09/18/23 01/15/24 Unknown Rx lisinopril 40 mg tablet 40 mg PO DAILY #90 tabs 10/11/23 01/17/24 01/17/24 Rx cholecalciferol (vitamin D3) 125 125 mcg PO DAILY #90 caps 10/19/23 01/17/24 01/17/24 Rx mcg (5,000 unit) capsule baclofen 20 mg tablet 20 mg PO QID PRN Spasms 01/18/24 01/18/24 01/17/24 History hydrocodone 10 mg-acetaminophen 1 tab PO Q8H PRN pain 7 days #20 01/18/24 Unknown Rx 325 mg tablet tabs Allergies Allergy/AdvReac Type Severity Reaction Status Date / Time gabapentin Allergy Mild BLE Verified 01/18/24 06:05 swelling pregabalin [From Lyrica] Allergy Mild BLE Verified 01/18/24 06:05 swelling Current Medications Generic Name Dose Route Start Last Admin Trade Name Freq PRN Reason Stop Dose Admin Sodium Chloride 1,000 mls @ 30 mls/hr 01/18/24 06:15 01/18/24 06:26 Sodium Chloride 0.9% IV 01/19/24 06:14 30 mls/hr .Q24H KIKA Administration PFSH Anesthesia Medical History History of ankle fracture 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 Kristian Stone: C4-C5 and revision C5-C6, C6-C7 ACDFF. Dr. Patricia Mckeon C5-C6, C6-C7 ACDFF History of knee surgery Carpal tunnel syndrome of left wrist 04/26/2017 Dr. Kristian Stone open release of the median nerve at the wrist on the left History of delivery History of partial adrenalectomy Family History Grandmother Cancer Social History Smoking and tobacco/nicotine status: current every day tobacco/nicotine user cigarettes Packs smoked per day: 0.5 Alcohol intake: never Substance/Drug Use: never Household members: spouse and children Marital status: Current occupational status: disabled Data Anesthesia Cardiac Studies: No Data to Display
--- NOTE | 2024-01-18 06:41 | P.BOP_ITS ---
Date of Procedure: 01/18/24 Surgeon: Eren Porter DPM Insurance Associate(s): [employer] Procedure(s) performed: Incision of bone cortex left great toe Findings of the procedure(s): Osteonecrosis of distal phalanx, proximal phalanx appeared viable Estimated blood loss: 2 mL Specimen(s) removed: Distal phalanx right great toe bone culture sent to microbiology and remaining distal phalanx sent to pathology for gross Post-operative diagnosis: Osteonecrosis left great toe No complications with anesthesia or surgery.
[2024-01-18] MEDS: ceFAZolin 2,000 MG in sodium chloride 0.9% (plus) 50 ML 100 MG IV (07:42)
[2024-01-18] MEDS: BUPivacaine liposome 13.3 mg/mL SDV 10 mL 133 MG INFILTRATI (07:48)
--- NOTE | 2024-01-18 08:31 | P.OP_ITS ---
Operative Report Date of procedure: January 18, 2024 Pre-op diagnosis: Osteonecrosis left great toe. Post-op diagnosis: Osteonecrosis left great toe Post-op findings: Osteonecrosis left great toe distal phalanx Procedure done: Incision of bone cortex left great toe. CPT code 92971 Implants: 4-0 Vicryl, 4-0 nylon Specimens removed/disposition: Bone from distal phalanx left great toe sent to microbiology for Gram stain, culture and sensitivity. Pathology: Remaining left great toe distal phalanx sent to pathology for gross anatomic review Surgeon: Eren Porter DPM Civil Rights Attorney: Frank Estimated blood loss: 2 24 IV fluids: 0 Urine output: 0 Complications: None Findings: Purulence with abscess at the dorsal aspect of the distal phalanx and osteonecrosis distal phalanx left great toe Brief History: I reviewed at length with the patient, the risks, potential complications, benefits, alternatives, expectations, and typical outcomes associated with the surgery. The risks and potential complications were explained in detail, including but not limited to infection, wound dehiscence or soft tissue complications, bleeding and hematoma, chronic edema, neuritis or nerve damage producing numbness or chronic pain, CRPS, failure to relieve pain or worsening pain, thick / painful / unsightly scar, limited motion / stiffness, malposition, delayed union, malunion, or nonunion, fracture, reaction to implants, anesthetic complications, venous thromboembolism, and deformity recurrence. I discussed the notion of no regrets with the patient as it pertains to complications and outcomes. The patient seemed to understand the nature of the proposed care and required convalescence. They asked appropriate questions, answered to their satisfaction. They are aware no guarantees can be made as to a satisfactory outcome and they understand there may be other possible unforeseen complications or outcomes not listed here that will be treated accordingly if they arise. There were no written or implied guarantees given to the patient. They gave informed consent to proceed. Procedure: Under mild sedation the patient was brought to the operating room and remained on the gurney in supine position. A timeout was performed. Anesthesia was then administered by the anesthesia service. Local anesthesia was injected by myself consisting of 20 cc of 0.5 sent Marcaine plain and a left male block fashion. Well-padded pneumatic tourniquet was applied to the left ankle. Left lower extremity was scrubbed, prepped and draped utilizing normal aseptic technique. Left foot was elevated and ankle tourniquet inflated to 250 mmHg. No Esmarch bandage was utilized. Attention was directed to the distal aspect of the left great toe where no open wound or draining sinus tract was appreciated. There was erythema at the distal portion of the left great toe. Planned incision was performed this was a fishmouth incision encompassing the distal phalanx maintaining a long plantar flap with plans for disarticulating the distal phalanx through the interphalangeal joint of the left great toe. Incision was performed down to bone full-thickness with a #15 blade. Upon incising soft tissue white purulence was encountered dorsally at the level of the distal phalanx. This was irrigated from the incision with saline solution. Sharp disarticulation was performed through the hallux interphalangeal joint and the distal phalanx was freed from its soft tissue and capsular attachments, there was obvious osteonecrosis and bony destruction with erosive changes within the distal phalanx, bone culture was sent to microbiology for Gram stain, culture and sensitivity to help guide antibiotic therapy long-term should there be an infectious process. Remaining distal phalanx sent to pathology for gross anatomic review. The incision was irrigated with saline solution and the head of the proximal phalanx was directly visualized, there were no erosive changes or discoloration or density changes within the proximal phalanx, this appeared viable intraoperatively. Further irrigation was performed of the incision and the incision was then closed with soft tissue reapproximated in a layered fashion, subcutaneous tissue was reapproximated with 4-0 Vicryl and skin with 4-0 nylon. The incision was then dressed with Adaptic, sterile 4 x 4's, Kerlix and Brad wrap followed by application of a postop shoe to the left foot. Tourniquet was then deflated and a prompt hyperemic response was noted to the remaining digits of the left foot 2 through 5. Patient tolerated the procedure well without complications encountered intraoperatively with surgery or anesthesia. She was transferred to the PACU with vital signs stable and vascular status intact. Following a period of postoperative monitoring she will be discharged home. Will await finalization of cultures, have already had collaborative efforts with infectious disease, she received a infusion of dalbavancin with plan to repeat infusion, the diagnosis of osteomyelitis was not definitive clinically up to this point. Will rely on bone cultures to help make this diagnosis. Patient will be scheduled for follow-up next week in podiatry clinic, was given at home care instructions, scheduled follow-up and my cell phone number to contact with any postoperative questions or concerns.
--- NOTE | 2024-01-18 09:35 | ANE.PACU2 ---
Inpatient post-anesthesia follow up: Airway intact: Yes Vital signs: Temperature 97.3 F Pulse Rate 85 Respiratory Rate 17 Blood Pressure 117/70 Pulse Oximetry 97 Oxygen Delivery Me thod Room Air Oxygen Flow Rate Fraction of Inspir ed Oxygen Hydration adequate: Yes Nausea and vomiting: No Pain level: 1 Mental status: Baseline
== END 2024-01-18 09:36 | disposition home or self-care (01) ==
PROVIDERS: PCP Nurse Practitioner Family; Visit Provider Podiatrist Foot & Ankle Surgery
PROC: (CPT 28005; principal; 2024-01-18 07:30)
DX: M90.572 Osteonecrosis in diseases classified elsewhere, left ankle and foot (principal); L03.116 Cellulitis of left lower limb; E66.01 Morbid (severe) obesity due to excess calories; Z68.34 Body mass index [BMI] 34.0-34.9, adult; E11.65 Type 2 diabetes mellitus with hyperglycemia; M79.7 Fibromyalgia; I10 Essential (primary) hypertension; F17.210 Nicotine dependence, cigarettes, uncomplicated
CPT/HCPCS: 28005; 36416; 82962; 87070; 87077; 87176; 87186; 87205; 88307; 88311; C9290; J0690; J2704; J7030; L3260

== ENCOUNTER → 2024-01-24 13:23 | Outpatient (BNVA) | payer MEDICARE, SELFPAY | PROVIDERS: PCP Nurse Practitioner Family; Visit Provider Podiatrist Foot & Ankle Surgery | DX: Z98.890 Other specified postprocedural states (principal); E11.65 Type 2 diabetes mellitus with hyperglycemia; L03.116 Cellulitis of left lower limb; M90.572 Osteonecrosis in diseases classified elsewhere, left ankle and foot; Z79.84 Long term (current) use of oral hypoglycemic drugs | CPT/HCPCS: 99213 ==

== ENCOUNTER → 2024-01-30 13:50 | Outpatient (BNVA) | payer MEDICARE, SELFPAY | PROVIDERS: PCP Nurse Practitioner Family; Visit Provider Podiatrist Foot & Ankle Surgery | DX: Z98.890 Other specified postprocedural states (principal); E11.65 Type 2 diabetes mellitus with hyperglycemia; M90.572 Osteonecrosis in diseases classified elsewhere, left ankle and foot | CPT/HCPCS: 36415; 73630; 80053; 85025; 85651; 86140; 99024; 99213 ==

== ENCOUNTER → 2024-02-08 12:06 | Outpatient (BNVA) | payer MEDICARE, SELFPAY | PROVIDERS: PCP Nurse Practitioner Family; Visit Provider Podiatrist Foot & Ankle Surgery | DX: E11.65 Type 2 diabetes mellitus with hyperglycemia (principal); M90.572 Osteonecrosis in diseases classified elsewhere, left ankle and foot; Z79.84 Long term (current) use of oral hypoglycemic drugs | CPT/HCPCS: 99024; 99213 ==

== ENCOUNTER 2024-02-10 16:47 | Emergency (ER) | payer MEDICARE, SELFPAY ==
[2024-02-10 16:59] VITALS: BP 110/68; PULSE 100; RESP 17; TEMP 36.6; O2SAT 97; BMI 34.0
--- NOTE | 2024-02-10 17:11 | ED_ITS ---
HPI - Extremity Problem General: Chief complaint: Extremity Injury, Upper Stated complaint: cut right pointer finger Time Seen by Provider: 02/10/24 17:06 History of Present Illness: 43-year-old female was washing a knife a nd accidentally cut the dorsal aspect of her right index finger. Patient has good range of motion of the finger. Tetanus is up-to-date. Patient is at this time on antibiotics for a diabetic foot. 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 Kristian Stone: C4-C5 and revision C5-C6, C6-C7 ACDFF. Dr. Patricia Mckeon C5-C6, C6-C7 ACDFF History of knee surgery Carpal tunnel syndrome of left wrist 04/26/2017 Dr. Kristian Stone open release of the median nerve at the wrist on the left History of delivery History of partial adrenalectomy Family History Grandmother Cancer Social History Smoking and tobacco/nicotine status: current every day tobacco/nicotine user cigarettes Packs smoked per day: 0.5 Alcohol intake: never Substance/Drug Use: never Household members: spouse and children Marital status: Current occupational status: disabled Physical Exam Const: COMMON NORMALS: alert HENMT: COMMON NORMALS: normocephalic HEAD & SCALP: normocephalic Neck/C-Spine: COMMON NORMALS: no meningeal signs Resp: COMMON NORMALS: normal respiratory effort and clear to auscultation bilaterally AUSCULTATION: clear to auscultation bilaterally Cardio: COMMON NORMALS: regular rate and regular rhythm RATE: regular rate RHYTHM: regular rhythm GI: COMMON NORMALS: Soft to palpation and non-tender PALPATION: Yes Soft to palpation Extremity: RIGHT UPPER EXTREMITY: Yes hand & digits (1-1/2 cm laceration dorsal proximal index finger) Neuro: SENSORIUM/ORIENTATION: Yes alert MENINGEAL SIGNS: Yes no meningeal signs Skin: TRAUMA: laceration (Index finger right hand, 1.5 cm dorsal proximal) linear Procedures Laceration Laceration 1: Site: hand Side (If applicable): right Size (cm): 1.5 Description: linear Depth: simple, single layer Local Anesthetic: lidocaine 2% Amount of anesthesia used (mL): 2 Skin layer closed with: nylon Size (cm): 4-0 Number of sutures: 3 Technique: simple, interrupted Course Vital Signs: Vital signs: Vital Signs Temperature 97.9 F 02/10/24 16:59 Pulse Rate 100 02/10/24 16:59 Respiratory Rate 17 02/10/24 16:59 Blood Pressure 110/68 02/10/24 16:59 Pulse Oximetry 97 02/10/24 16:59 Oxygen Delivery Me thod Room Air 02/10/24 16:59 MDM - Extremity (Nontraumatic) Medical Decision Making 43-year-old female comes in today with injury to the dorsal proximal right index finger. Patient has a 1 and half centimeter linear laceration with no tendon injury or foreign body. Differential diagnosis included tendon injury, foreign body, laceration. Wound was cleaned thoroughly with saline irrigation. Patient then had 3 sutures for approximation of wound. Patient tolerated well. Postprocedure care instructions to the patient with recommendations for follow- up. Patient reported understanding. No radiology studies performed this visit Discharge Plan Discharge Patient Disposition: Home Clinical Impression: Laceration of finger Qualifiers: Encounter type: initial encounter Finger: index finger Damage to nail status: without damage Foreign body presence: without foreign body Laterality: right Qualified Code(s): S61.210A - Laceration without foreign body of right index finger without damage to nail, initial encounter Condition: Stable Prescriptions: No Action methadone 10 mg tablet 5 mg PO TID (DME) ASO to the right See Rx Instructions .Route .MEDSUPPLY Qty: 1 0RF Rx Instructions: As directed oxycodone-acetaminophen [Percocet] 10-325 mg tablet 1 tab PO Q12H PRN (Reason: pain) 7 Days Qty: 14 0RF Mounjaro 5 mg/0.5 mL pen injector SUBCUT diclofenac sodium 1 % gel See Rx Instructions .ROUTE .COMPLEX Qty: 300 1RF Dose Instruction: APPLY 4 GRAMS TO AFFECTED AREA 4 TIMES DAILY Rx Instructions: APPLY 4 GRAMS TO AFFECTED AREA 4 TIMES DAILY metformin 1,000 mg tablet 1,000 mg PO BID Qty: 180 3RF lisinopril 40 mg tablet 40 mg PO DAILY Qty: 90 0RF sulfamethoxazole-trimethoprim [Bactrim DS] 800-160 mg tablet 1 tab PO BID 14 Days Qty: 28 0RF oxycodone-acetaminophen [Percocet] 7.5-325 mg tablet 1 tab PO Q8H PRN (Reason: pain) 7 Days Qty: 21 0RF (DME) Diabetic shoes See Rx Instructions .ROUTE .MEDSUPPLY Qty: 1 0RF Rx Instructions: With one pair custom molded accommodative inserts made by the shoe [employer] cholecalciferol (vitamin D3) 125 mcg (5,000 unit) capsule 125 mcg PO DAILY Qty: 90 3RF baclofen 20 mg tablet See Rx Instructions .ROUTE .COMPLEX Qty: 120 3RF Dose Instruction: TAKE ONE TABLET BY MOUTH 4 TIMES DAILY NEEDED FOR MUSCLE SPASMS Rx Instructions: TAKE ONE TABLET BY MOUTH 4 TIMES DAILY NEEDED FOR MUSCLE SPASMS venlafaxine 75 mg tablet 75 mg PO BID Qty: 180 0RF Discharge Orders: Discharge ED (Routine); Ordered 02/10/24 Ordered By: Yong Clement Referrals: Tennille Simpson NP [Primary Care Provider] - Discharge Diet: Usual diet Discharge Activity: Increase activity as tolerated Patient Instructions: Finger Laceration (ED) Activity Restrictions/Additional Instructions: Keep wound clean and dry. Is important to keep the wound as dry as possible. For the next 48 hours do not get the wound wet at all. After that she can wash wound gently but not submerged under water for long periods of time. Sutures need to come out in 7 days. Watch for signs of infection in the wound. Follow- up with primary care or return to the ER for new concerns. Coding Level of Care Code ED Senior Consulting Manager for Charisse Poole
[2024-02-10 18:12] VITALS: BP 110/68; PULSE 100; RESP 17; TEMP 36.6; O2SAT 97
[2024-02-10] MEDS: HYDROcodone-acetaminophen 7.5-325 mg Tablet 1 TAB PO (18:12)
== END 2024-02-10 18:03 | disposition home or self-care (01) ==
PROVIDERS: Emergency Provider Nurse Practitioner Family; PCP Nurse Practitioner Family
DX: S61.210A Laceration without foreign body of right index finger without damage to nail, initial encounter (principal); Z79.84 Long term (current) use of oral hypoglycemic drugs; Z79.891 Long term (current) use of opiate analgesic; F17.210 Nicotine dependence, cigarettes, uncomplicated; E11.9 Type 2 diabetes mellitus without complications; W26.0XXA Contact with knife, initial encounter; Y93.G1 Activity, food preparation and clean up
CPT/HCPCS: 12001; 99283

== ENCOUNTER → 2024-02-21 15:13 | Outpatient (BNVA) | payer MEDICARE, SELFPAY | PROVIDERS: PCP Nurse Practitioner Family; Visit Provider Podiatrist Foot & Ankle Surgery | DX: Z98.890 Other specified postprocedural states; E11.65 Type 2 diabetes mellitus with hyperglycemia; S93.324A Dislocation of tarsometatarsal joint of right foot, initial encounter; X58.XXXA Exposure to other specified factors, initial encounter; Z79.84 Long term (current) use of oral hypoglycemic drugs | CPT/HCPCS: 36415; 73630; 80053; 85025; 85651; 86140; 99213 ==

== ENCOUNTER 2024-03-04 20:00 | Outpatient (CLI) | payer MEDICARE, SELFPAY | END 2024-03-04 20:01 | disposition home or self-care (01) | LOC: SLEEP 03-05 06:30 | PROVIDERS: PCP Nurse Practitioner Family; Visit Provider Anesthesiology Pain Medicine | DX: G47.10 Hypersomnia, unspecified (principal); G47.33 Obstructive sleep apnea (adult) (pediatric); G47.31 Primary central sleep apnea | CPT/HCPCS: 95810 ==

== ENCOUNTER → 2024-03-11 15:34 | Outpatient (BNVA) | payer MEDICARE, SELFPAY | PROVIDERS: PCP Nurse Practitioner Family; Visit Provider Podiatrist Foot & Ankle Surgery | DX: S93.324D Dislocation of tarsometatarsal joint of right foot, subsequent encounter; X58.XXXD Exposure to other specified factors, subsequent encounter; E11.65 Type 2 diabetes mellitus with hyperglycemia; Z79.84 Long term (current) use of oral hypoglycemic drugs | CPT/HCPCS: 73630; 99213 ==

== ENCOUNTER → 2024-03-24 13:34 | Outpatient (BNVA) | payer MEDICARE, SELFPAY | PROVIDERS: PCP Nurse Practitioner Family; Visit Provider Nurse Practitioner Family | DX: I10 Essential (primary) hypertension (principal); E11.65 Type 2 diabetes mellitus with hyperglycemia | CPT/HCPCS: 80061; 83036 ==

== ENCOUNTER → 2024-04-01 13:52 | Outpatient (BNVA) | payer MEDICARE, SELFPAY | PROVIDERS: PCP Nurse Practitioner Family; Visit Provider Podiatrist Foot & Ankle Surgery | DX: S93.324A Dislocation of tarsometatarsal joint of right foot, initial encounter (principal); E11.65 Type 2 diabetes mellitus with hyperglycemia; M21.611 Bunion of right foot; M19.071 Primary osteoarthritis, right ankle and foot; M25.374 Other instability, right foot; X58.XXXA Exposure to other specified factors, initial encounter; Z79.84 Long term (current) use of oral hypoglycemic drugs | CPT/HCPCS: 99214 ==

== ENCOUNTER 2024-04-11 07:01 | Day surgery (SDC) | payer MEDICARE, SELFPAY ==
[2024-04-11] VITALS (14 sets, daily range): BP systolic 99–158; BP diastolic 71–102; PULSE 90–103; RESP 12–18; TEMP 36.1–36.4; O2SAT 90–98; BMI 33.7
[2024-04-11] MEDS: sodium chloride 0.9% 1,000 ML 30 ML IV (07:25)
[2024-04-11 07:35] LABS: Glucose Point of Care 188 mg/dL (70-110)
--- NOTE | 2024-04-11 07:53 | PC.NURSE ---
NERVE BLOCK COMPLETED BY ANESTHESIOLOGIST. TIME OUT COMPLETED. VS DOCUMENTED. RN AT BEDSIDE. VS MONITORED DURING.
--- NOTE | 2024-04-11 07:54 | ANES.PROC ---
Anesthesia Procedures Procedure/Date: 04/11/24 Nerve Block ^: Nerve Block 1: Main Anesthesia: general anesthesia Time Out Performed: Yes Consent: requested by attending/covering physician, from patient, from other, risks and benefits reviewed and patient agrees to proceed Nerve block location: popliteal (R) Anesthesia monitors applied: pulse oximetry, EKG, BP cuff and oxygen Nerve block position: supine Anesthetic Used: ropivicaine 0.5% (30 ml) and with decadron (4 mg) Ultrasound used to: recognize landmarks Nerve Stimulator Used?: No Interscalene/Femoral BLK: 4 stimuplex 21 g needle used for position and inplane approach, visualize local anesthetic spread and no vascular puncture identified Injection: neg aspiration of heme Patient Tolerated Procedure: well Complications: none
--- NOTE | 2024-04-11 07:55 | ANES.PREANE2 ---
Pre-Anesthetic Assessment Height/Weight: Height 1.78 m Weight 106.594 kg Temp Pulse Resp BP Pulse Ox O2 Del Method O2 Flow Rate 97.0 F L 90 12 118/81 98 Nasal Cannula 2 04/11/24 07:16 04/11/24 07:48 04/11/24 07:48 04/11/24 07:48 04/11/24 07:48 04/11/24 07:48 04/11/24 07:48 Preop Diagnosis: Bunion and midfoot arthritis right lower extremity. Operation Date: 04/11/24 08:30 Proposed Procedures p Bunionectomy Lapidus(Right) - Eren Porter DPM s Arthrodesis Foot Foot Fusion(Right) - FLACO Lawrence Gastrocnemius Recession(Right) - Eren Porter DPM Familial anesthetic complications: None Was Beta Lupillo taken within 24 hours: N/A Was Clonidine taken within 24 hours: N/A Last intake: Intake Last Liquid Date 04/10/24 Last Liquid Time 23:30 Last Solid Date 04/10/24 Last Solid Time 23:30 Social Tobacco and No alcohol Exam alert, oriented x 3, clear to auscultation bilaterally and regular rate & rhythm Airway Mallampati: Class III Dentition: chipped (very poord entition) Comments: Comments: hx cervical fusion CV/HEM Hypertension Metabolic Diabetes Mellitus and Morbid Obesity pheochromocytoma 6 years ago Anesthetic Plan ASA status: 3 Anesthesia: General and Regional (specify below) Risk of > 500 ml blood loss (7ml/kg in children): No Medications/Allergies Home Medications Medication Instructions Recorded Confirmed Last Taken Type methadone 10 mg tablet 5 mg PO TID 03/30/23 04/11/24 04/11/24 History ASO to the right #1 ea 06/28/23 04/01/24 Unknown Rx diclofenac sodium 1 % topical gel See Rx Instructions .Route 08/03/23 04/11/24 04/10/24 Rx .COMPLEX #300 grams metformin 1,000 mg tablet 1,000 mg PO BID #180 tabs 08/31/23 04/11/24 04/10/24 Rx Diabetic shoes #1 ea 09/18/23 04/01/24 Unknown Rx cholecalciferol (vitamin D3) 125 125 mcg PO DAILY #90 caps 10/19/23 04/11/24 04/10/24 Rx mcg (5,000 unit) capsule venlafaxine 75 mg tablet 75 mg PO BID #180 tabs 02/08/24 04/11/24 04/11/24 Rx CAM walker #1 ea 02/21/24 04/01/24 Unknown Rx semaglutide 0.25 mg or 0.5 mg (2 0.5 mg (0.736 mL) SUBCUT .weekly 04/07/24 04/11/24 04/02/24 Rx mg/3 mL) subcutaneous pen injector #3 mL (Ozempic) baclofen 20 mg tablet 20 mg PO QID 04/10/24 04/11/24 04/10/24 History lisinopril 40 mg tablet 40 mg PO DAILY 04/10/24 04/11/24 04/10/24 History Allergies Allergy/AdvReac Type Severity Reaction Status Date / Time gabapentin Allergy Mild BLE Verified 04/01/24 13:53 swelling pregabalin [From Lyrica] Allergy Mild BLE Verified 04/01/24 13:53 swelling Current Medications Generic Name Dose Route Start Last Admin Trade Name Freq PRN Reason Stop Dose Admin Sodium Chloride 1,000 mls @ 30 mls/hr 04/11/24 07:15 04/11/24 07:25 Sodium Chloride 0.9% IV 04/12/24 07:14 30 mls/hr .Q24H KIKA Administration PFSH Anesthesia Medical History History of ankle fracture 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 Kristian Stone: C4-C5 and revision C5-C6, C6-C7 ACDFF. Dr. Patricia Mckeon C5-C6, C6-C7 ACDFF History of knee surgery Carpal tunnel syndrome of left wrist 04/26/2017 Dr. Kristian Stone open release of the median nerve at the wrist on the left History of delivery History of partial adrenalectomy Family History Grandmother Cancer Social History Smoking and tobacco/nicotine status: current every day tobacco/nicotine user cigarettes Packs smoked per day: 0.5 Alcohol intake: never Substance/Drug Use: never Household members: spouse and children Marital status: Current occupational status: disabled Data Anesthesia Cardiac Studies: No Data to Display
[2024-04-11] MEDS: ceFAZolin 2,000 MG in sodium chloride 0.9% (plus) 50 ML 100 MG IV (08:20)
--- NOTE | 2024-04-11 08:21 | W.PM.OPSUD ---
Surgery/Procedure H&P Update DATE OF PROCEDURE: April 11, 2024 DATE H&P PERFORMED: 04/01/24 H&P UPDATE INFORMATION: I have reviewed H&P completed within last 30 days, I have examined patient prior to procedure, No changes to prior documentation and H&P is in [facility] [place] on date indicated PREOP DIAGNOSIS: Bunion and midfoot arthritis right lower extremity. PLANNED PROCEDURE: Operation Date: 04/11/24 08:30 Proposed Procedures p Bunionectomy Lapidus(Right) - Eren Porter DPM s Arthrodesis Foot Foot Fusion(Right) - FLACO Lawrence Gastrocnemius Recession(Right) - Eren Porter DPM
--- NOTE | 2024-04-11 08:22 | PM.OP ---
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 M19.071 Instability of right foot joint M25.374 Equinus deformity of right lower leg M21.661 Procedure done: Procedure: Right Lapidus bunionectomy, Right midfoot fusion and Right gastrocnemius recession CPT codes: CPT code 08175, CPT code 95615 and CPT code 54063 Diagnosis with ICD10 code: Dislocation of tarsometatarsal joint of right foot, initial encounter S93.324A Type 2 diabetes mellitus with hyperglycemia, without long-term current use of insulin E11.65 Bunion, right foot 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
--- NOTE | 2024-04-11 10:09 | P.BOP_ITS ---
Date of Procedure: 01/18/24 Surgeon: Eren Porter DPM Racking Machine Operator(s): Alfonso Procedure(s) performed: Right gastrocnemius recession. Right second tarsometatarsal joint fusion. Right Lapidus bunionectomy. Findings of the procedure(s): None Estimated blood loss: 5 mL Specimen(s) removed: No specimens Post-operative diagnosis: Right gastrocnemius equinus. Right Lisfranc dis location, right bunion. No complications with anesthesia or surgery. Tourniquet time 119 minutes. Right popliteal block performed preoperatively per anesthesia. General LMA.
[2024-04-11] MEDS: HYDROmorphone 1 mg/mL INJ 1 mL 0.5 MG IVP (10:21)
[2024-04-11] MEDS: oxyCODONE-APAP 10-325 mg Tablet 1 TAB PO (11:14)
--- NOTE | 2024-04-11 11:30 | ANE.PACU2 ---
Inpatient post-anesthesia follow up: Airway intact: Yes Vital signs: Temperature 97.5 F Pulse Rate 95 Respiratory Rate 18 Blood Pressure 113/77 Pulse Oximetry 92 Oxygen Delivery Me thod Room Air Oxygen Flow Rate 2 Fraction of Inspir ed Oxygen Hydration adequate: Yes Nausea and vomiting: No Pain level: 1 Mental status: Baseline
--- NOTE | 2024-04-11 14:17 | XR_ITS ---
WS: [id number] XR foot RT min 3V* [id number] REASON FOR EXAM: SHAMIR PICS FINDINGS: Surgical removal of plantar and Achilles enthesophytes from the calcaneus. XR/XR foot RT min 3V* [id number] IMPRESSION: Calcaneal surgery as above.
== END 2024-04-11 11:34 | disposition home or self-care (01) ==
PROVIDERS: PCP Nurse Practitioner Family; Visit Provider Podiatrist Foot & Ankle Surgery
PROC: (CPT 28297; principal; 2024-04-11 08:20)
PROC: (CPT 28740; 2024-04-11 08:20)
PROC: (CPT 27687; 2024-04-11 08:20)
DX: S93.324A Dislocation of tarsometatarsal joint of right foot, initial encounter (principal); E11.65 Type 2 diabetes mellitus with hyperglycemia; M21.611 Bunion of right foot; M19.071 Primary osteoarthritis, right ankle and foot; M25.374 Other instability, right foot; M21.6X1 Other acquired deformities of right foot; Z98.1 Arthrodesis status; I10 Essential (primary) hypertension; E11.69 Type 2 diabetes mellitus with other specified complication; E66.01 Morbid (severe) obesity due to excess calories; Z68.33 Body mass index [BMI] 33.0-33.9, adult; Z79.84 Long term (current) use of oral hypoglycemic drugs; M79.7 Fibromyalgia; F17.210 Nicotine dependence, cigarettes, uncomplicated; X58.XXXA Exposure to other specified factors, initial encounter
CPT/HCPCS: 27687; 28297; 28730; 36416; 73630; 76000; 82962; C1713; J0690; J1100; J1170; J2405; J2704; J2795; J3010; J3490; J7030

== ENCOUNTER → 2024-04-25 10:27 | Outpatient (BNVA) | payer MEDICARE, SELFPAY | PROVIDERS: PCP Nurse Practitioner Family; Visit Provider Podiatrist Foot & Ankle Surgery | DX: Z98.890 Other specified postprocedural states (principal) | CPT/HCPCS: 73630 ==

== ENCOUNTER → 2024-05-01 13:26 | Outpatient (BNVA) | payer MEDICARE, SELFPAY | PROVIDERS: PCP Nurse Practitioner Family; Visit Provider Podiatrist Foot & Ankle Surgery | DX: Z98.890 Other specified postprocedural states (principal) | CPT/HCPCS: 73630; 99024 ==

== ENCOUNTER → 2024-05-22 15:13 | Outpatient (BNVA) | payer MEDICARE, SELFPAY | PROVIDERS: PCP Nurse Practitioner Family; Visit Provider Podiatrist Foot & Ankle Surgery | DX: Z98.890 Other specified postprocedural states (principal) | CPT/HCPCS: 73630; 99024 ==

== ENCOUNTER → 2024-06-19 12:58 | Outpatient (BNVA) | payer MEDICARE, SELFPAY | PROVIDERS: PCP Nurse Practitioner Family; Visit Provider Podiatrist Foot & Ankle Surgery | DX: Z98.890 Other specified postprocedural states (principal) | CPT/HCPCS: 73630; 99024 ==

== ENCOUNTER 2024-06-26 20:00 | Outpatient (CLI) | payer MEDICARE, SELFPAY | END 2024-06-26 20:01 | disposition home or self-care (01) | LOC: SLEEP 23:01 | PROVIDERS: PCP Nurse Practitioner Family; Visit Provider Anesthesiology Pain Medicine | DX: G47.33 Obstructive sleep apnea (adult) (pediatric) (principal) | CPT/HCPCS: 95811 ==

== ENCOUNTER → 2024-07-17 13:16 | Outpatient (BNVA) | payer MEDICARE, SELFPAY | PROVIDERS: PCP Nurse Practitioner Family; Visit Provider Podiatrist Foot & Ankle Surgery | DX: Z98.890 Other specified postprocedural states (principal); E11.65 Type 2 diabetes mellitus with hyperglycemia; M21.41 Flat foot [pes planus] (acquired), right foot; M21.42 Flat foot [pes planus] (acquired), left foot; M21.611 Bunion of right foot; S93.324A Dislocation of tarsometatarsal joint of right foot, initial encounter; M25.374 Other instability, right foot; M19.071 Primary osteoarthritis, right ankle and foot; Z79.84 Long term (current) use of oral hypoglycemic drugs; X58.XXXA Exposure to other specified factors, initial encounter | CPT/HCPCS: 73630; 99213 ==

== ENCOUNTER → 2024-08-05 12:12 | Outpatient (BNVA) | payer MEDICARE, SELFPAY | PROVIDERS: PCP Nurse Practitioner Family; Visit Provider Nurse Practitioner Family | DX: E11.65 Type 2 diabetes mellitus with hyperglycemia (principal) | CPT/HCPCS: 83036 ==

== ENCOUNTER → 2024-10-16 14:12 | Outpatient (BNVA) | payer MEDICARE, SELFPAY | PROVIDERS: PCP Nurse Practitioner Family; Visit Provider Podiatrist Foot & Ankle Surgery | DX: Z98.890 Other specified postprocedural states (principal); E11.65 Type 2 diabetes mellitus with hyperglycemia; M21.41 Flat foot [pes planus] (acquired), right foot; M21.42 Flat foot [pes planus] (acquired), left foot; M21.611 Bunion of right foot; M19.071 Primary osteoarthritis, right ankle and foot; M96.0 Pseudarthrosis after fusion or arthrodesis; Z79.84 Long term (current) use of oral hypoglycemic drugs | CPT/HCPCS: 73630; 99213 ==

== ENCOUNTER → 2024-11-07 09:30 | Outpatient (BNVA) | payer MEDICARE, SELFPAY | PROVIDERS: PCP Nurse Practitioner Family; Visit Provider Nurse Practitioner Family | DX: I10 Essential (primary) hypertension (principal); E11.65 Type 2 diabetes mellitus with hyperglycemia; E55.9 Vitamin D deficiency, unspecified | CPT/HCPCS: 80053; 80061; 82306; 83036 ==

== ENCOUNTER → 2025-08-10 14:36 | Outpatient (BNVA) | payer MEDICARE, SELFPAY | PROVIDERS: PCP Nurse Practitioner Family; Visit Provider Nurse Practitioner Family | DX: E55.9 Vitamin D deficiency, unspecified (principal); E11.65 Type 2 diabetes mellitus with hyperglycemia; N94.89 Other specified conditions associated with female genital organs and menstrual cycle | CPT/HCPCS: 80053; 80061; 81000; 82043; 82306; 82607; 83036 ==

== ENCOUNTER → 2025-08-28 09:06 | Outpatient (BNVA) | payer MEDICARE, SELFPAY | PROVIDERS: PCP Nurse Practitioner Family; Visit Provider Nurse Practitioner Family | DX: D50.9 Iron deficiency anemia, unspecified (principal); M25.571 Pain in right ankle and joints of right foot; R53.83 Other fatigue | CPT/HCPCS: 82728; 83550; 85025 ==

== ENCOUNTER → 2025-09-10 09:08 | Outpatient (BNVA) | payer MEDICARE, SELFPAY | PROVIDERS: PCP Nurse Practitioner Family; Visit Provider Nurse Practitioner Family | DX: D50.9 Iron deficiency anemia, unspecified (principal) | CPT/HCPCS: 85025 ==